=== PATIENT | male | born 1955 | race Caucasian/White ===

== ENCOUNTER → 2023-08-25 10:12 | Outpatient (REF) | payer MEDICARE, BC, SELFPAY | LOC: HWRAD 10:12 | PROVIDERS: ATTENDING PHYSICIAN Specialist; FAMILY PHYSICIAN Family Medicine | DX: N28.89 Other specified disorders of kidney and ureter (principal); N28.1 Cyst of kidney, acquired | CPT/HCPCS: 74170; Q9967 ==

== ENCOUNTER → 2024-08-23 08:27 | Outpatient (REF) | payer MEDICARE, BC, SELFPAY | LOC: MRI 3T 08:27 | PROVIDERS: ATTENDING PHYSICIAN Specialist; FAMILY PHYSICIAN Family Medicine | DX: N28.89 Other specified disorders of kidney and ureter (principal); N28.1 Cyst of kidney, acquired | CPT/HCPCS: 74183; A9575 ==

== ENCOUNTER → 2024-09-27 15:45 | Outpatient (REF) | payer MEDICARE, BC, SELFPAY | LOC: HWRAD 15:45 | PROVIDERS: ATTENDING PHYSICIAN Urology; FAMILY PHYSICIAN Family Medicine | DX: N28.89 Other specified disorders of kidney and ureter (principal) | CPT/HCPCS: 71046 ==

== ENCOUNTER 2024-10-14 20:00 | Inpatient (IN) | payer MEDICARE, BC, SELFPAY ==
[2024-10-14] VITALS (12 sets, daily range): BP systolic 113–147; BP diastolic 52–126; BMI 38.5
[2024-10-14 10:55] LABS: Glucose - Point of Care 116 mg/dl (70-99)
[2024-10-14] MEDS: NORMOSOL-R/PLASMALYTE-A 1000 IV (11:08)
[2024-10-14 17:57] LABS: Glucose - Point of Care 193 mg/dl (70-99)
[2024-10-14 18:18] LABS: Hematocrit 30.2 % (39.0-52.0); Hemoglobin 10.4 g/dL (13.0-18.0)
[2024-10-14] MEDS: DILAUDID 0.25 MG IV ×2 (18:27→19:21)
[2024-10-14] MEDS: NOVOLOG vial 1 UNITS SC (18:32)
[2024-10-14] MEDS: LR 1000 IV (20:19)
[2024-10-14] MEDS: PROTONIX 40 MG PO (20:30)
[2024-10-14] MEDS: SENOKOT 17.2 MG PO (20:30)
[2024-10-14] MEDS: PEPCID 20 MG PO (20:30)
[2024-10-14] MEDS: LIPITOR 40 MG PO (20:30)
--- NOTE | 2024-10-14 20:30 | PTCARENOTE ---
Addendum entered by Ritu Yeager RN 10/14/24 23:00:
Pt arrived to 2S from PACU. Lap left partial nephrectomy. AAOx3. VSS. IVF administered as ordered. Tolerating clear liquids. Bed in lowest position, call dawn within reach, safety maintained. Family at bedside.
Original Note:
Pt arrived to 2S from PACU.
[2024-10-14 21:10] LABS: Glucose - Point of Care 219 mg/dl (70-99)
[2024-10-14] MEDS: ELAVIL 50 MG PO (21:23)
[2024-10-14] MEDS: PERCOCET 5/325 1 TABLET PO (22:38)
[2024-10-15 03:35] VITALS: BP 136/57
[2024-10-15] MEDS: LR 1000 IV (03:41)
[2024-10-15 06:00] VITALS: BMI 39.5
[2024-10-15 07:07] LABS: Hematocrit 27.7 % (39.0-52.0); Hemoglobin 9.5 g/dL (13.0-18.0); Mean Corp Hgb Conc. 34.3 g/dL (33.0-37.0); Mean Corpuscular Hgb 31.3 pg (27.0-31.0); Mean Corpuscular Volume 91.1 fL (80.0-94.0); Platelet Count 199 10^3/uL (130-400); Red Blood Cell Count 3.04 10^6/uL (4.70-6.10); Red Cell Dist. Width 12.7 % (11.5-14.5); White Blood Cell Count 13.3 10^3/uL (4.8-10.8)
[2024-10-15 07:47] LABS: Blood Urea Nitrogen 18 mg/dl (9-20); Calcium 7.9 mg/dl (8.4-10.2); Carbon Dioxide 25 mmol/L (22-30); Chloride 108 mmol/L (98-107); Estimated Creatinine Clearance 104 ml/min; Glucose 169 mg/dl (70-99); Potassium 4.4 mmol/L (3.5-5.1); Sodium 136 mmol/L (135-145); eGFR > 60.00
[2024-10-15 08:05] VITALS: BP 133/58
[2024-10-15 08:12] LABS: Glucose - Point of Care 169 mg/dl (70-99)
--- NOTE | 2024-10-15 08:45 | W.PN.URO.CBU ---
Addendum entered and electronically signed by Solis Elaine MD 10/15/24 08:53:
Preop starting HGB 12.3
Original Note:
Today's Communication / Plan
-
- Trend hematuria - flushed for some clots this morning
- Trend HGB and vitals - some post op bleeding. No signs of hypovolemia
- Remove martini when urine clearing
Assessment / Plan
-
69M with large L lower pole renal mass consistent with renal cell carcinoma
s/p robotic L partial nephrectomy 10/14
- Trend hematuria - flushed for some clots this morning
- Trend HGB and vitals - some post op bleeding. No signs of hypovolemia
- Remove martini when urine clearing
- Diabetic diet
- IS
- Ambulate and chair today to stay mobile
- SCD DVT PPx
Likely discharge tomorrow if stable
Diagnosis
-
Date of Service: October 15, 2024
-
Patient Diagnosis:
Left renal mass
Post op anemia - blood loss and dilutional
EKATERINA
CAD
DM
Post Op s/p L partial nephrectomy 10/14
Subjective
-
Pain controlled
Some clots in martini overnight
Tolerating clears
Objective
-
Vital Signs
Temp Pulse Resp BP Pulse Ox
98.8 F 86 18 133/58 91
10/15/24 08:05 10/15/24 08:05 10/15/24 08:05 10/15/24 08:05 10/15/24 08:05
Intake and Output
10/14/24 10/15/24 10/16/24
06:59 06:59 06:59
Intake Total 960 / 960
Output Total 1550 / 1550
Balance -590 / -590
Intake:
Oral fluids 960 / 960
Output:
Urine, Martini 155 / 1550
Laboratory Results
10/15/24 06:58
10/15/24 06:58
Physical Exam
-
General - well developed, well nourished, no acute distress
Chest - clear unlabored
Abdomen - soft, non-tender
Martini in place, red urine with clots
Skin - warm & dry with no rash
Neuro - AOx3
Extremities -no edema
Incision - clean, dry
[2024-10-15] MEDS: PERCOCET 5/325 1 TABLET PO ×2 (08:49→20:44)
[2024-10-15] MEDS: PROTONIX 40 MG PO ×2 (08:49→19:42)
[2024-10-15] MEDS: NOVOLOG FLEXPEN-LOW RESISTANCE 1 UNITS SC (08:49)
[2024-10-15] MEDS: LOW STRENGTH ASPIRIN 81 MG PO (08:50)
[2024-10-15] MEDS: ZESTRIL 10 MG PO (08:50)
[2024-10-15] MEDS: FEOSOL 325 MG PO (08:50)
[2024-10-15] MEDS: SENOKOT 17.2 MG PO ×2 (08:50→19:42)
--- NOTE | 2024-10-15 09:02 | CM ---
CM met with patient in room. Patient confirmed demographics. Patient lives independently with . Patient does not have a history of VN, SNF. Patient has a CPAP. Patient does not know DME company. Patient is active with his PCP. Patient will
use [facility] for medication services. Patient's will be available for assistance.
PLAN: Home no needs.
[2024-10-15 09:46] LABS: Glycohemoglobin (HgbA1c) 5.7 % (4.0-5.6)
[2024-10-15 11:32] VITALS: BP 120/60
[2024-10-15] MEDS: NOVOLOG FLEXPEN-LOW RESISTANCE SC (13:21)
[2024-10-15 15:10] VITALS: BP 124/57
[2024-10-15] MEDS: TYLENOL 650 MG PO (15:49)
[2024-10-15 16:57] LABS: Glucose - Point of Care 209 mg/dl (70-99)
[2024-10-15] MEDS: NOVOLOG FLEXPEN-LOW RESISTANCE 2 UNITS SC (17:11)
[2024-10-15] MEDS: LIPITOR 40 MG PO (17:12)
[2024-10-15] MEDS: PEPCID 20 MG PO (17:12)
[2024-10-15 19:10] VITALS: BP 134/59
[2024-10-15] MEDS: ELAVIL 50 MG PO (21:18)
[2024-10-15 21:53] LABS: Glucose - Point of Care 184 mg/dl (70-99)
[2024-10-15 23:15] VITALS: BP 143/58
[2024-10-16 06:00] VITALS: BMI 39.7
[2024-10-16 07:05] VITALS: BP 114/62
[2024-10-16 07:16] LABS: Hematocrit 28.7 % (39.0-52.0); Hemoglobin 9.7 g/dL (13.0-18.0); Mean Corp Hgb Conc. 33.8 g/dL (33.0-37.0); Mean Corpuscular Hgb 31.7 pg (27.0-31.0); Mean Corpuscular Volume 93.8 fL (80.0-94.0); Mean Platelet Volume 9.2 fL (7.4-10.4); Platelet Count 214 10^3/uL (130-400); Red Blood Cell Count 3.06 10^6/uL (4.70-6.10); Red Cell Dist. Width 13.2 % (11.5-14.5); White Blood Cell Count 11.7 10^3/uL (4.8-10.8)
[2024-10-16 07:34] LABS: Glucose - Point of Care 189 mg/dl (70-99)
[2024-10-16 07:45] LABS: Blood Urea Nitrogen 17 mg/dl (9-20); Calcium 8.3 mg/dl (8.4-10.2); Carbon Dioxide 27 mmol/L (22-30); Chloride 104 mmol/L (98-107); Estimated Creatinine Clearance 85 ml/min; Glucose 181 mg/dl (70-99); Potassium 4.1 mmol/L (3.5-5.1); Sodium 137 mmol/L (135-145); eGFR > 60.00
[2024-10-16] MEDS: NOVOLOG FLEXPEN-LOW RESISTANCE 1 UNITS SC ×2 (08:01→13:17)
[2024-10-16] MEDS: FEOSOL 325 MG PO (08:02)
[2024-10-16] MEDS: SENOKOT 17.2 MG PO (08:02)
[2024-10-16] MEDS: PROTONIX 40 MG PO (08:02)
[2024-10-16] MEDS: ZESTRIL 10 MG PO (08:03)
[2024-10-16] MEDS: LOW STRENGTH ASPIRIN 81 MG PO (08:03)
[2024-10-16] MEDS: TYLENOL 650 MG PO (08:06)
[2024-10-16 11:39] LABS: Glucose - Point of Care 184 mg/dl (70-99)
--- NOTE | 2024-10-16 11:56 | W.PN.URO.CBU ---
Today's Communication / Plan
-
discharge
Assessment / Plan
-
69M with large L lower pole renal mass consistent with renal cell carcinoma
s/p robotic L partial nephrectomy 10/14
stable
Diagnosis
-
Date of Service: October 16, 2024
-
Patient Diagnosis:
Left renal mass
Post op anemia - blood loss and dilutional
EKATERINA
CAD
DM
Post Op s/p L partial nephrectomy 10/14
Subjective
-
diminishing pain
+ appetite
feels well enough to go home
Objective
-
Vital Signs
Temp Pulse Resp BP Pulse Ox
98.3 F 102 16 114/62 95
10/16/24 07:05 10/16/24 07:05 10/16/24 07:05 10/16/24 07:05 10/16/24 07:05
Intake and Output
10/15/24 10/16/24 10/17/24
06:59 06:59 06:59
Intake Total 3045 / 3045
Output Total 2680 / 2680 400 / 400
Balance 365 / 365 -400 / -400
Intake:
Oral fluids 2670 / 2670
IV fluids (Total) 375 / 375
Output:
Urine, Franco 2400 / 2400
Urine, Voided 280 / 280 400 / 400
Other:
Number of approximated MODERATE 2
amounts of urine
Laboratory Results
10/16/24 06:36
10/16/24 06:36
Physical Exam
-
General - well developed, well nourished, no acute distress
Abdomen - glued surgical sites are healthy, intact; expected degree of bruising
--- NOTE | 2024-10-16 12:46 | CM ---
Patient has been medically cleared for discharge to home with no additional skilled services. Patient declined HH RN. Son will transport home.
[2024-10-16 13:15] VITALS: BP 118/50
--- NOTE | 2024-10-25 12:54 | W.DS.TRANS ---
DC Summary - Exchange Trouble Shooter
-
Discharge Instructions:
Discharge Diagnosis/Procedures Left kidney mass
Robotic left partial nephrectomy
Diet Diabetic, Carb Controlled
Activity No strenuous activity
Additional Activity avoid lifting, straining, strenuous activity for
4 weeks post surgery
Driving Restrictions As prior to admission
Bathing Restrictions OK to Shower
Wound Care gently rinse incisions in the shower - don't
scrub or pick off glue
Instructions:
Stand-Alone Forms:
Changes to Home Medications: No
Discharge Medications:
DC Medications w/original date entered in [facility]
multivitamin with folic acid 400 mcg tablet (Tab-A-Elizabeth) 1 tab PO DAILY Supplement 01/21/17
aspirin 81 mg chewable tablet 81 mg PO DAILY 01/23/17
lisinopril 10 mg tablet 10 mg PO DAILY #30 tabs 01/23/17
metformin 500 mg tablet,extended release 24 hr 1,000 mg (2 x 500 mg) PO QPM #30 tabs 01/23/17
amitriptyline 10 mg tablet 50 mg PO HS Neurological Condition 09/05/22
famotidine 20 mg tablet 20 mg PO QPM Gastrointestinal Issue 10/12/24
pantoprazole 40 mg tablet,delayed release 40 mg PO BID Gastrointestinal Issue 10/12/24
semaglutide 0.25 mg or 0.5 mg (2 mg/3 mL) subcutaneous pen injector (Ozempic) 0.5 mg SC BAXTER Diabetes 10/12/24
ferrous sulfate 325 mg (65 mg iron) tablet 325 mg PO BID Supplement 10/14/24
acetaminophen 500 mg tablet (Tylenol Extra Strength) 1,000 mg PO Q6HPRN PRN MILD PAIN 10/19/24
atorvastatin 40 mg tablet (Lipitor) 40 mg PO QPM High Cholesterol 10/19/24
ibuprofen 200 mg tablet (Advil) 400 mg PO DAILYPRN PRN MILD PAIN 10/19/24
metformin 500 mg tablet,extended release 24 hr 500 mg PO DAILY Diabetes 10/19/24
oxycodone-acetaminophen 5 mg-325 mg tablet 1 tab PO Q6HPRN PRN moderate pain 10/19/24
polyethylene glycol 3350 17 gram oral powder packet (Miralax) 17 g PO DAILYPRN PRN CONSTIAPTION 10/19/24
Home Medication Changes
Pending Results: Yes (pathology)
== END 2024-10-16 13:52 | disposition home or self-care (01) | DRG 658 ==
LOC: 2 SOUTH 20:00
PROVIDERS: ADMITTING PHYSICIAN Urology
PROC: 0TB14ZZ Excision of Left Kidney, Percutaneous Endoscopic Approach (ICD-10-PCS; 2024-10-14)
DX: C64.2 Malignant neoplasm of left kidney, except renal pelvis (principal); Z88.0 Allergy status to penicillin
CPT/HCPCS: 88307; 80048; 82962; 83036; 85014; 85018; 85027; 86850; 86900; 86901; 88341; 88342

== ENCOUNTER 2024-10-19 15:06 | Inpatient (IN) | payer MEDICARE, BC, SELFPAY ==
[2024-10-19] VITALS (17 sets, daily range): BP systolic 121–165; BP diastolic 55–77; BMI 39.7
--- NOTE | 2024-10-19 06:21 | ED.GENMED ---
History of Present Illness
General
Chief Complaint: Male Genito-Urinary Symptoms
Source: patient and family
Exam Limitations: none
Time Seen by Provider: 10/19/24 06:06
Nursing documentation reviewed up to this point in time: agreed with
History of Present Illness
History of Present Illness:
69-year-old male past medical history of renal cell carcinoma status post partial nephrectomy 5 days ago presenting to the emergency department today with concerns of hematuria starting this morning upon awakening. Very mild left-sided flank pain
as well. Otherwise has been recovering well at home. Denies any fevers nausea vomiting any difficulty with urination. Not on blood thinners.
Past History
Past History
ED Past Medical History: NIDDM
ED Past Surgical History: Appendectomy and Cholecystectomy
Social History
Tobacco: Non-smoker
Alcohol: Occasional
Drug: None
Personal:
Living: with family
Employment: Employed
Review of Systems
Review of Systems
Allergies reviewed?: Yes
All Other Systems: ROS reviewed and negative except as documented in HPI and ROS
Phy Exam
Physical Exam
Physical Exam:
GENERAL: Alert , in no apparent distress
EYE: pupils equal and reactive
NECK: Supple, no significant adenopathy.
ENT: o/p clr, mmm.
CARDIAC: Regular rate and rhythm .
LUNGS: Clear breath sounds bilaterally, no acute respiratory distress, no wheezes/rales/rhonchi
ABDOMEN: Soft, without focal tenderness, no r/g, no cvat
NEUROLOGICAL: Alert and oriented, no focal neuro deficits
SKIN: Warm and dry, skin intact.
MUSCULOSKELETAL: No edema, well perfused.
PSYCH: Normal and appropriate interaction.
Course
Orders/Labs/Results
Orders:
Orders
10/19/24 06:29
Complete Blood Count/With Diff Urgent
Comprehensive Metabolic Panel Urgent
Urinalysis Reflex To Culture Urgent
Date Specimen was Collected: 10/19/24
Time Specimen was Collected: 06:14
Urine Microscopic Reflex Cult Urgent
Urine Culture Urgent
LEONILA Source: U
Specimen Description:
Date Specimen was Collected: 10/19/24
Time Specimen was Collected: 06:14
10/19/24 06:59
CT Abd/Pel (IV only)-DH only Urgent
Comment:
Reason For Exam: hematuria left flank pain, recent partial neph L
10/19/24 08:47
Bladder Scan- Treatment ONCE
Comment: PVR please
10/19/24 09:26
Morphine Sulfate 4 mg IV NOW STA
10/19/24 09:30
Lidocaine 2% [Lidocaine Uro-Jet 2%] 1 syringe .ROUTE .[facility]
10/19/24 10:03
Franco Placement- Treatment ONCE
Reason for insertion: Outlet obstruction
10/19/24 11:33
Acetaminophen [Tylenol] 1,000 mg PO NOW STA
Abnormal Lab Results
10/19/24
06:29
RBC 2.75 L 10^6/uL
(4.70-6.10)
Hgb 8.6 L g/dL
(13.0-18.0)
Hct 26.2 L %
(39.0-52.0)
MCV 95.3 H fL
(80.0-94.0)
MCH 31.3 H pg
(27.0-31.0)
MCHC 32.8 L g/dL
(33.0-37.0)
Absolute Neuts (auto) 6.9 H 10^3/uL
(1.4-6.5)
Absolute Monos (auto) 0.7 H 10^3/uL
(0.1-0.6)
Neutrophils % 76.6 H %
(42.2-75.2)
Lymphocytes % 15.0 L %
(20.5-51.1)
Chloride 109 H mmol/L
(98-107)
Glucose 184 H mg/dl
(70-99)
Total Protein 6.1 L g/dl
(6.3-8.2)
Ur Occult Blood Reflex 4+ A
(Negative)
Leukocyte Esterase Rfl 1+ A
(Negative)
Urine RBC >100 A /HPF
(0-2)
Urine Glucose 1+ A
(Negative)
Urine Albumin (Reflex) 4+ A
(Neg - Trace)
10/19/24 06:29
10/19/24 06:29
Vital Signs
Initial and Last Documented VS:
Initial Vital Signs
Temp Pulse Resp BP Pulse Ox
98 F 92 22 148/66 96
10/19/24 05:59 10/19/24 05:59 10/19/24 05:59 10/19/24 05:59 10/19/24 05:59
Last Documented Vital Signs
Temp Pulse Resp BP Pulse Ox
98 F 90 25 156/65 95
10/19/24 05:59 10/19/24 11:15 10/19/24 11:15 10/19/24 11:07 10/19/24 07:45
MDM/Problems Addressed
MDM/Problems Addressed:
69-year-old male presenting to the emergency department today with concerns of hematuria this morning. Had a partial nephrectomy 5 days ago. Otherwise was recovering well since. Vital signs normal on arrival. No significant reproducible pain but
is complaining of some degree of left-sided flank pain at this point. No belly pain otherwise. 47-year-old CT scan showing hematoma to the kidney as well as clot in the bladder. Postvoid residual showing almost 200 cc. This was discussed with
urology recommended bladder irrigation. The bladder was irrigated with improvement and 55 cc with postvoid residual afterward. Due to his drop in hemoglobin and large hematoma plan to admit for monitoring and reassessment.
*Critical Care Note
Total Time (30-74mins, 75-104mins- exclusive of procedures): Not Applicable
ED Attending Note
-
Portions of this chart may have been created with voice recognition software.� Occasional wrong word or��sound alike� substitutions may have occurred due to the inherent limitations of voice recognition software.
Discharge Plan
Departure
Patient Disposition: Admit
Date of Disposition: 10/19/24
Time of Disposition: 11:41
Admit to: Med/Surg
Admit to doctor: Wm
Presentation/result/management discussed w/ accepting MD/DO: Hospitalist
Patient with high blood pressure during this ER visit?: No
Condition: Good
Covid-19: Not Applicable
Discharge Problem:
Hematuria, Hematoma of kidney
Prescriptions:
No Action
multivitamin with folic acid [Tab-A-Elizabeth] 1 TABLET tablet
1 tab PO DAILY
lisinopril 10 MG tablet
10 mg PO DAILY Qty: 30 0RF
aspirin 81 MG tablet,chewable
81 mg PO DAILY 0RF
metformin 500 MG tablet extended release 24 hr
1,000 mg PO QPM Qty: 30 0RF
metformin 500 mg Tablet
500 mg PO DAILY
amitriptyline 10 mg Tablet
50 mg PO DAILY
Rx Instructions:
Taken to control tactile pain on chest, not for depression
atorvastatin 80 MG tablet
40 mg PO QPM
acetaminophen [Tylenol] 325 mg Tablet
650 mg PO Q4H PRN (Reason: pain)
famotidine 20 mg Tablet
20 mg PO QPM
pantoprazole 40 mg Tablet,Delayed Release (Dr/Ec)
40 mg PO BID
Ozempic 0.25 mg or 0.5 mg (2 mg/3 mL) Pen Injector
0.5 mg SC QWEEK
Rx Instructions:
Takes on Friday
ferrous sulfate 325 mg (65 mg iron) Tablet
325 mg PO BID
oxycodone-acetaminophen 5-325 mg Tablet
1 tab PO Q4HPRN PRN (Reason: moderate pain) Qty: 10 0RF
Referrals:
Tanner Matos DO [Family Provider] -
Interventions
Interventions:
*Risk Screen - Suicide Last Done: 10/19/24 05:59
*Neglect/Abuse Screening Last Done: 10/19/24 05:59
*ED- Fall Risk Assessment Last Done: 10/19/24 06:06
*ED COVID-19 Vaccine History Last Done: 10/19/24 06:06
ED-Male Genitourinary Assessment Last Done: 10/19/24 07:01
ED-Skin Assessment Last Done: 10/19/24 06:06
Discharge Date and Time
Print Language: MALIAN
[2024-10-19 06:43] LABS: % Basophils 0.2 % (0-2); % Eosinophils 0.2 % (0-6); % Immature Granulocytes 0.3 % (0-0.5); % Monocytes 7.7 % (1.7-9.3); % Neutrophils 76.6 % (42.2-75.2); Absolute Lymphocytes 1.4 10^3/uL (1.2-3.4); Absolute Monocytes 0.7 10^3/uL (0.1-0.6); Absolute Neutrophils 6.9 10^3/uL (1.4-6.5); Hematocrit 26.2 % (39.0-52.0); Hemoglobin 8.6 g/dL (13.0-18.0); Mean Corp Hgb Conc. 32.8 g/dL (33.0-37.0); Mean Corpuscular Hgb 31.3 pg (27.0-31.0); Mean Corpuscular Volume 95.3 fL (80.0-94.0); Mean Platelet Volume 8.9 fL (7.4-10.4); Nucleated Red Blood Cells % 0 % (-); Platelet Count 220 10^3/uL (130-400); Red Blood Cell Count 2.75 10^6/uL (4.70-6.10); Red Cell Dist. Width 13.2 % (11.5-14.5); White Blood Cell Count 9.1 10^3/uL (4.8-10.8)
[2024-10-19 06:54] LABS: ALT (SGPT) 27 U/L (0-50); AST (SGOT) 28 U/L (17-59); Albumin 3.8 g/dl (3.5-5.0); Alkaline Phosphatase 91 U/L (38-126); Blood Urea Nitrogen 14 mg/dl (9-20); Calcium 8.4 mg/dl (8.4-10.2); Carbon Dioxide 25 mmol/L (22-30); Chloride 109 mmol/L (98-107); Estimated Creatinine Clearance 94 ml/min; Glucose 184 mg/dl (70-99); Potassium 4.3 mmol/L (3.5-5.1); Sodium 138 mmol/L (135-145); Total Bilirubin 0.7 mg/dl (0.2-1.3); Total Protein 6.1 g/dl (6.3-8.2); eGFR > 60.00
[2024-10-19 07:20] LABS: Urine Albumin 4+ (Neg - Trace); Urine Bilirubin Negative (Negative); Urine Character Cloudy (Clear); Urine Color Red; Urine Glucose 1+ (Negative); Urine Ketone Negative (Negative); Urine Leukocyte 1+ (Negative); Urine Nitrite Negative (Negative); Urine Occult Blood 4+ (Negative); Urine Urobilinogen Negative (Neg - 1+)
[2024-10-19 08:27] LABS: Urine Red Blood Cell >100 /HPF (0-2); Urine Squamous Cell 0-2 /LPF (Few)
[2024-10-19] MEDS: MORPHINE SULFATE 4 MG IV (09:34)
--- NOTE | 2024-10-19 11:45 | HPS.HSE ---
Addendum entered and electronically signed by Kamryn Merritt MD 10/19/24 17:35:
noted intermittent hyperglycemia during last hospitalization
FS monitoring and low dose sliding scale ordered for now.
Original Note:
Family Physician
-
Family Physician: Tanner Matos
Chief Complaint
-
Hematuria
History of Present Illness
69M Obesity prediabetes HTN HLD GERD history of renal cell carcinoma status post partial nephrectomy 5 days ago presenting with concerns of hematuria starting morning upon awakening. Very mild left-sided flank pain as well. Otherwise reports
recovering well at home. Denies any fevers nausea vomiting any difficulty with urination. Not on blood thinners. VSS labs notable for drop in hgb from 9.7 last hospitalization to 8.6 on ED eval. Denies fever chills nausea vomiting significant abd
pain. Pt otherwise reports feeling well. CT noted post left partial nephrectomy with associate collection 8.4 cm diameter suggestive hematoma.
Medical History
Past Medical History
Past Medical History: Reports Other
Past Surgical History: Reports Other (as above)
Social History
Tobacco: Non-smoker
Drug: None
Personal:
Living: With Family
Family History
Family History: Not pertinent (reviewed)
Allergies / Home Medications
Allergies reflects when Allergies were last updated in [facility].
Home Medications with original date entered in [facility]
Allergy/Medication List:
Allergies
Allergy/AdvReac Type Severity Reaction Status Date / Time
Cephalosporins Allergy Unknown; Verified 10/19/24 06:01
reflexively
added by
[employer]
in 2007
penicillin G Allergy Swelling Verified 10/19/24 06:01
Penicillins Allergy Swelling Verified 10/19/24 06:01
Home Medications
multivitamin with folic acid 400 mcg tablet (Tab-A-Elizabeth) 1 tab PO DAILY 01/21/17
aspirin 81 mg chewable tablet 81 mg PO DAILY 01/23/17
lisinopril 10 mg tablet 10 mg PO DAILY #30 tabs 01/23/17
metformin 500 mg tablet,extended release 24 hr 1,000 mg (2 x 500 mg) PO QPM #30 tabs 01/23/17
amitriptyline 10 mg tablet 50 mg PO HS 09/05/22
famotidine 20 mg tablet 20 mg PO QPM 10/12/24
pantoprazole 40 mg tablet,delayed release 40 mg PO BID 10/12/24
semaglutide 0.25 mg or 0.5 mg (2 mg/3 mL) subcutaneous pen injector (Ozempic) 0.5 mg SC BAXTER 10/12/24
ferrous sulfate 325 mg (65 mg iron) tablet 325 mg PO BID 10/14/24
acetaminophen 500 mg tablet (Tylenol Extra Strength) 1,000 mg PO Q6HPRN PRN MILD PAIN 10/19/24
atorvastatin 40 mg tablet (Lipitor) 40 mg PO QPM 10/19/24
ibuprofen 200 mg tablet (Advil) 400 mg PO DAILYPRN PRN MILD PAIN 10/19/24
metformin 500 mg tablet,extended release 24 hr 500 mg PO DAILY 10/19/24
oxycodone-acetaminophen 5 mg-325 mg tablet 1 tab PO Q6HPRN PRN moderate pain 10/19/24
polyethylene glycol 3350 17 gram oral powder packet (Miralax) 17 g PO DAILYPRN PRN CONSTIAPTION 10/19/24
Review of Systems
-
A 12 point ROS was completed and negative except as noted: Yes
Constitutional: Reports Other (As below)
Physical Exam
Vital Signs
Vital Signs
Temp Pulse Resp BP Pulse Ox
98 F 90 25 156/65 95
10/19/24 05:59 10/19/24 11:15 10/19/24 11:15 10/19/24 11:07 10/19/24 07:45
Physical Exam
General: Other (As below)
Laboratory Results
-
10/19/24 06:29
10/19/24 06:29
Laboratory Results
Total Bilirubin 0.7 mg/dl (0.2-1.3) 10/19/24 06:29
AST 28 U/L (17-59) 10/19/24 06:29
ALT 27 U/L (0-50) 10/19/24 06:29
Alkaline Phosphatase 91 U/L (38-126) 10/19/24 06:29
Impression/Plan
-
ROS
General: Denies fever chills night sweats unexpected weight loss
Neuro: Denies seizure shaking loss of consciousness dizziness vertigo
Psych: denies depression hallucinations confusion manic episodes
Endocrine: Denies polyuria polydipsia polyphagia heat/cold intolerance
HEENT: Denies blindness visual disturbances epistaxis
Pulmonary: denies coughing hemoptysis sneezing sob dyspnea on exertion
Cardiovascular: denies chest pain palpitations leg swelling
Hematology: denies signs symptoms of anemia easy bruising/bleeding
Gastrointestinal: denies nausea vomiting diarrhea constipation hematemesis hematochezia melena
Genito-Urinary: denies retention incontinence dysuria
Musculoskeletal: denies joint pain weakness
Dermatology: denies rash laceration bruising
Physical Exam
General: Some pallor noted. No cyanosis or jaundice. Obese
HEENT: Throat clear. PERRLA Normocephalic atraumatic
NECK: Supple. No JVD Carotid Bruits
RESPIRATORY: Lungs clear to auscultation. No crackles wheezes stridor
CVS: S1, S2 normal. RRR. No murmur, rub or gallop.
ABDOMEN: Soft, mild left-sided tenderness healing laparoscopic surgical wound sites. No distension. BS+/normal.
EXTREMITIES: No peripheral cyanosis or edema.
WATER HAULER: AOx3 conversant coherent
IMPRESSION:
69M Obesity prediabetes HTN HLD GERD history of renal cell carcinoma status post partial nephrectomy 5 days ago presenting with concerns of hematuria starting morning upon awakening. Very mild left-sided flank pain as well. Otherwise reports
recovering well at home. Denies any fevers nausea vomiting any difficulty with urination. Not on blood thinners. VSS labs notable for drop in hgb from 9.7 last hospitalization to 8.6 on ED eval. Denies fever chills nausea vomiting significant abd
pain. Pt otherwise reports feeling well. CT noted post left partial nephrectomy with associate collection 8.4 cm diameter suggestive hematoma.
PLAN:
#Acute blood loss anemia
#Renal cell carcinoma s/p recent partial Nephrectomy
Tele observation
monitor H&H Q6H
Type and screen
transfusion prn <8 Hgb given concern active bleeding
Urology eval
pain control percocet prn
hold NSAIDs except for baby asa
#HTN
cont home lisinopril with holding parameters
#HLD
cont home statin
#obesity
#prediabetes
Updated A1c 5.7 prediabetes
cont home metformin for weight loss
no need for routine fingersticks at this time
DVT ppx SCD
Full Code
discussed with patient, patient's Xiomara, and urology
I spent a total of 76 minutes with the patient or on the floor. More than 50% of this time involved counseling and coordination of care.
[2024-10-19] MEDS: TYLENOL 1000 MG PO ×2 (11:48→17:31)
--- NOTE | 2024-10-19 13:30 | EDRN ---
First void after the catheter treatment earlier
[2024-10-19 13:42] LABS: Hematocrit 23.7 % (39.0-52.0); Hemoglobin 7.9 g/dL (13.0-18.0)
[2024-10-19 14:48] LABS: Iron 40 ug/dl (49-181)
[2024-10-19 14:57] LABS: Percent Saturation 11 % (20-50); Total Iron Binding Capacity 343 ug/dl (261-462)
[2024-10-19 15:15] LABS: Folate 16.7 ng/ml (2.76-20); Vitamin B12 688 pg/ml (239-931)
--- NOTE | 2024-10-19 15:23 | CONS.URO ---
Consultation
-
Date/Time Consultation Performed: 10/19/24 at 1200
Performing Provider: Peffer
Reason for Consultation: Hematuria
Medical History
History of Present Illness
69M with large L lower pole renal mass
s/p robotic L partial nephrectomy on 10/14
Discharged on 10/16 after uncomplicated post op stay
Woke up this AM with L flank pain and sudden onset gross hematuria and difficulty voiding. Urine had previously been clear
Came to the ER and found to be stable
HGB decreased 1pt from 10/[address] showed retroperitoneal hematoma as well as hematoma in the bladder
No active extravasation/bleeding seen during arterial phase of CT
Bladder was irrigated with a martini in the ER with some clots removed
He has since voided well with low PVR
Past Medical History
Past Medical History: HTN and NIDDM
Past Surgical History: Urological (L partial nephrectomy)
Social History
Tobacco: Non-smoker
Alcohol: None
Drug: None
Personal:
Living: With Family
Family History
Family History: Reviewed & Not Pertinent
Allergies/Home Medications
Allergies
Allergy/AdvReac Type Severity Reaction Status Date / Time
Cephalosporins Allergy Unknown; Verified 10/19/24 06:01
reflexively
added by
[employer]
in 2007
penicillin G Allergy Swelling Verified 10/19/24 06:01
Penicillins Allergy Swelling Verified 10/19/24 06:01
Home Medications
�Medication �Instructions �Recorded �Confirmed �Type
multivitamin with folic acid 400 1 tab PO DAILY 01/21/17 10/19/24 History
mcg tablet (Tab-A-Elizabeth)
aspirin 81 mg chewable tablet 81 mg PO DAILY 01/23/17 10/19/24 Rx
lisinopril 10 mg tablet 10 mg PO DAILY #30 tabs 01/23/17 10/19/24 Rx
metformin 500 mg tablet,extended 1,000 mg (2 x 500 mg) PO QPM #30 01/23/17 10/19/24 Rx
release 24 hr tabs
amitriptyline 10 mg tablet 50 mg PO HS 09/05/22 10/19/24 History
famotidine 20 mg tablet 20 mg PO QPM 10/12/24 10/19/24 History
pantoprazole 40 mg tablet,delayed 40 mg PO BID 10/12/24 10/19/24 History
release
semaglutide 0.25 mg or 0.5 mg (2 0.5 mg SC BAXTER 10/12/24 10/19/24 History
mg/3 mL) subcutaneous pen injector
(Ozempic)
ferrous sulfate 325 mg (65 mg 325 mg PO BID 10/14/24 10/19/24 History
iron) tablet
acetaminophen 500 mg tablet 1,000 mg PO Q6HPRN PRN MILD PAIN 10/19/24 10/19/24 History
(Tylenol Extra Strength)
atorvastatin 40 mg tablet (Lipitor) 40 mg PO QPM 10/19/24 10/19/24 History
ibuprofen 200 mg tablet (Advil) 400 mg PO DAILYPRN PRN MILD PAIN 10/19/24 10/19/24 History
metformin 500 mg tablet,extended 500 mg PO DAILY 10/19/24 10/19/24 History
release 24 hr
oxycodone-acetaminophen 5 mg-325 1 tab PO Q6HPRN PRN moderate pain 10/19/24 10/19/24 History
mg tablet
polyethylene glycol 3350 17 gram 17 g PO DAILYPRN PRN CONSTIAPTION 10/19/24 10/19/24 History
oral powder packet (Miralax)
Physical Exam
Vital Signs
Vital Signs
Temp Pulse Resp BP Pulse Ox
98.6 F 95 18 148/74 96
10/19/24 14:45 10/19/24 14:45 10/19/24 14:45 10/19/24 14:45 10/19/24 14:45
Lab / Testing Results
Laboratory Results
10/19/24 18:00
10/19/24 06:29
Physical Exam
General: Well Developed, Well Nourished and No Apparent Distress
Respiratory: Clear and Non Labored Respirations
GI: Soft, Non Tender and Non Distended
Genito-urinary: No Costovertebral Tend
Neuro: AO x 3
Psych: Calm and Intact Judgement
Assessment / Plan
-
69M post op from robotic L partial nephrectomy 10/14
Readmitted for retroperitoneal hematoma and gross hematuria which represents bleeding at operative site, possible pseudoaneurysm formation
- Admit for observation and trend vitals
- serial HGB to measure bleeding
- Transfuse as needed for HGB <8 due possible active bleed
- IR for selective embolization if unstable or not responding to fluid/product resuscitation
- Observe voiding without martini at this time but may need catheter placement/CBI if bleeding resumes
- Limit activity for now until stable - bedrest or chair
[2024-10-19] MEDS: PEPCID 20 MG PO (17:31)
[2024-10-19] MEDS: LIPITOR 40 MG PO (17:31)
[2024-10-19] MEDS: GLUCOPHAGE XR EXTENDED RELEASE 1000 MG PO (17:32)
[2024-10-19 17:42] LABS: Glucose - Point of Care 173 mg/dl (70-99)
[2024-10-19] MEDS: PROTONIX 40 MG PO (19:55)
[2024-10-19] MEDS: ROXICODONE 5 MG PO (20:05)
[2024-10-19] MEDS: SENOKOT-S 1 TABLET PO (20:08)
[2024-10-19 21:26] LABS: Hematocrit 25.6 % (39.0-52.0); Hemoglobin 8.5 g/dL (13.0-18.0)
[2024-10-19] MEDS: ELAVIL 50 MG PO (21:26)
[2024-10-19 21:38] LABS: INR 1.06; PT 14.1 Sec (11.4-14.6)
[2024-10-19 21:54] LABS: Glucose - Point of Care 179 mg/dl (70-99)
[2024-10-20 03:00] VITALS: BP 149/62
--- NOTE | 2024-10-20 07:03 | W.PN.HOSP.TC ---
Today's Communication/Plan
-
monitor H&H, transfuse prn Hgb<8
pain control
hematuria monitoring/mgmt as per urology
Assessment / Plan
Assessment / Plan
Physical Exam
General: Some pallor noted. No cyanosis or jaundice. Obese
HEENT: Throat clear. PERRLA Normocephalic atraumatic
NECK: Supple. No JVD Carotid Bruits
RESPIRATORY: Lungs clear to auscultation. No crackles wheezes stridor
CVS: S1, S2 normal. RRR. No murmur, rub or gallop.
ABDOMEN: Soft, mild left-sided tenderness healing laparoscopic surgical wound sites. No distension. BS+/normal.
EXTREMITIES: No peripheral cyanosis or edema.
POSTBED STITCHER: AOx3 conversant coherent
IMPRESSION:
69M Obesity prediabetes HTN HLD GERD history of renal cell carcinoma status post partial nephrectomy 5 days ago presenting with concerns of hematuria starting morning upon awakening. Very mild left-sided flank pain as well. Otherwise reports
recovering well at home. Denies any fevers nausea vomiting any difficulty with urination. Not on blood thinners. VSS labs notable for drop in hgb from 9.7 last hospitalization to 8.6 on ED eval. Denies fever chills nausea vomiting significant abd
pain. Pt otherwise reports feeling well. CT noted post left partial nephrectomy with associate collection 8.4 cm diameter suggestive hematoma.
PLAN:
#Acute blood loss anemia
#Renal cell carcinoma s/p recent partial Nephrectomy
Tele
received 1PRBC with good response noted
monitor H&H
transfusion prn <8 Hgb given concern active bleeding
Urology eval appreciated
pain control percocet prn
hold NSAIDs except for baby asa
#HTN
cont home lisinopril with holding parameters
#HLD
cont home statin
#obesity
#prediabetes
Updated A1c 5.7 prediabetes
cont home metformin for weight loss
Low dose sliding scale for now given hyperglycemia noted recent last hospitalization
DVT ppx SCD
Full Code
I spent a total of 45 minutes with the patient or on the floor. More than 50% of this time involved counseling and coordination of care.
Anticipated Discharge: 24 - 48 hours
Subjective/Interval History
-
Date of Service: October 20, 2024
No acute distress. Reports feeling well. Hematuria persists. Pain controlled with current pain regimen
Objective Data
-
Labs:
Laboratory Results
10/19/24 10/20/24
21:19 06:52
WBC Pending
Hgb 8.5 L Pending
Hct 25.6 L Pending
Plt Count Pending
PT 14.1
INR 1.06
APTT 33.0
Sodium Pending
Potassium Pending
Chloride Pending
Carbon Dioxide Pending
BUN Pending
Creatinine Pending
Glucose Pending
Calcium Pending
Vital Signs:
Vital Signs
Temp Pulse Resp BP Pulse Ox
99.5 F 87 18 149/62 93
10/20/24 03:00 10/20/24 03:00 10/20/24 03:00 10/20/24 03:00 10/20/24 03:00
I&O
10/19/24 10/20/24 10/21/24
06:59 06:59 06:59
Intake Total 970 / 970
Output Total 530 / 530
Balance 440 / 440
[2024-10-20 07:13] VITALS: BP 136/72
[2024-10-20 07:21] LABS: Hematocrit 27.5 % (39.0-52.0); Hemoglobin 9.1 g/dL (13.0-18.0); Mean Corp Hgb Conc. 33.1 g/dL (33.0-37.0); Mean Corpuscular Hgb 30.5 pg (27.0-31.0); Mean Corpuscular Volume 92.3 fL (80.0-94.0); Mean Platelet Volume 8.8 fL (7.4-10.4); Platelet Count 248 10^3/uL (130-400); Red Blood Cell Count 2.98 10^6/uL (4.70-6.10); Red Cell Dist. Width 13.5 % (11.5-14.5); White Blood Cell Count 12.4 10^3/uL (4.8-10.8)
[2024-10-20 07:37] LABS: Glucose - Point of Care 208 mg/dl (70-99)
[2024-10-20 07:59] LABS: Blood Urea Nitrogen 13 mg/dl (9-20); Calcium 8.3 mg/dl (8.4-10.2); Carbon Dioxide 25 mmol/L (22-30); Chloride 107 mmol/L (98-107); Estimated Creatinine Clearance 94 ml/min; Glucose 165 mg/dl (70-99); Potassium 4.4 mmol/L (3.5-5.1); Sodium 138 mmol/L (135-145); eGFR > 60.00
[2024-10-20] MEDS: PROTONIX 40 MG PO ×2 (08:30→21:40)
[2024-10-20] MEDS: ZESTRIL 10 MG PO (08:30)
[2024-10-20] MEDS: THERAGRAN 1 TABLET PO (08:30)
[2024-10-20] MEDS: GLUCOPHAGE XR EXTENDED RELEASE 500 MG PO (08:30)
[2024-10-20] MEDS: LOW STRENGTH ASPIRIN 81 MG PO (08:30)
[2024-10-20] MEDS: NOVOLOG FLEXPEN-LOW RESISTANCE 2 UNITS SC ×3 (08:31→18:05)
--- NOTE | 2024-10-20 09:13 | W.PN.URO.CBU ---
Today's Communication / Plan
-
Trend HGB/vitals
Transfuse as needed
Trend voiding symptoms
Assessment / Plan
-
69M post op from robotic L partial nephrectomy 10/14
Readmitted for retroperitoneal hematoma and gross hematuria which represents bleeding at operative site, possible pseudoaneurysm formation
- Trend vitals and HGB
- Transfuse as needed for HGB <8 due to active bleeding
- Stable this AM post transfusion 1 unit
- IR for selective embolization if unstable or not responding to fluid/product resuscitation
- Observe voiding without martini at this time but may need catheter placement/CBI if bleeding with clot obstruction resumes
- Limit activity for now until stable - bedrest or chair
Diagnosis
-
Date of Service: October 20, 2024
-
Patient Diagnosis:
L renal mass
Retroperitoneal bleed
Hematuria
Post Op s/p L partial nephrectomy 10/14
Subjective
-
Voiding well this AM, had some episodes of passing clots yesterday
s/p transfusion yesterday
Objective
-
Vital Signs
Temp Pulse Resp BP Pulse Ox
99.0 F 92 18 136/72 94
10/20/24 07:13 10/20/24 07:13 10/20/24 07:13 10/20/24 07:13 10/20/24 07:13
Intake and Output
10/19/24 10/20/24 10/21/24
06:59 06:59 06:59
Intake Total 970 / 970
Output Total 530 / 530
Balance 440 / 440
Intake:
Oral fluids 720 / 720
Blood Product Amount Infused ( 250 / 250
mL)
Packed Rbc Leukoreduced Unit 250 / 250
[id number]
Output:
Urine, Voided 530 / 530
Other:
Number of approximated MODERATE 4
amounts of urine
Laboratory Results
10/20/24 06:52
10/20/24 06:52
Physical Exam
-
General - well developed, well nourished, no acute distress
Chest - clear bilaterally
Abdomen - soft, non-tender, positive bowel sounds, no CVAT, no incisional pain or distention
[2024-10-20] MEDS: FEOSOL 325 MG PO ×2 (10:50→21:40)
[2024-10-20 11:00] VITALS: BP 129/68
--- NOTE | 2024-10-20 11:17 | CM ---
Patient discharged 4 days ago S/P partial nephrectomy. Patient declined HH VN services at that time. Readmitted for hematuria. 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 Drives. Does have a
CPAP, no HH or in-home services. PCP is Dr. Tanner Matos and Pharmacy is [facility] on [facility] in [place]. Discharge POC: Patient again declines HH VN services. Home with NN.
[2024-10-20 11:59] LABS: Vitamin D, 25-OH*** 30.5 ng/mL (30-80)
[2024-10-20 12:14] LABS: Glucose - Point of Care 227 mg/dl (70-99)
[2024-10-20 15:45] VITALS: BP 132/81
--- NOTE | 2024-10-20 15:57 | DOWNTIME ---
There was a [employer] Client Settlement Clerk Downtime on 10/20/2024 from 1230 to 10/20/2024 at 1550. Downtime documentation of patient's care, including medication administrations, has been reconciled in the electronic record per guidelines. Refer to the
patient's paper chart under the miscellaneous tab to see printed paper medication records and downtime forms.
[2024-10-20] MEDS: GLUCOPHAGE XR EXTENDED RELEASE 1000 MG PO (17:47)
[2024-10-20] MEDS: PEPCID 20 MG PO (17:47)
[2024-10-20] MEDS: LIPITOR 40 MG PO (17:47)
[2024-10-20 18:06] LABS: Glucose - Point of Care 203 mg/dl (70-99)
[2024-10-20] MEDS: ROXICODONE 5 MG PO ×2 (18:08→21:58)
[2024-10-20 18:54] LABS: Urine Albumin 4+ (Neg - Trace); Urine Bilirubin Negative (Negative); Urine Character Cloudy (Clear); Urine Color Red; Urine Glucose Negative (Negative); Urine Ketone 1+ (Negative); Urine Leukocyte Negative (Negative); Urine Nitrite Negative (Negative); Urine Occult Blood 4+ (Negative); Urine Urobilinogen Negative (Neg - 1+)
[2024-10-20 19:00] LABS: Hematocrit 26.6 % (39.0-52.0)
[2024-10-20 19:14] LABS: Urine Red Blood Cell >100 /HPF (0-2); Urine Squamous Cell 0-2 /LPF (Few)
[2024-10-20 19:15] LABS: Urine Bacteria Few (Negative)
[2024-10-20 19:20] VITALS: BP 141/71
[2024-10-20] MEDS: ELAVIL 50 MG PO (21:39)
[2024-10-20 21:41] LABS: Glucose - Point of Care 182 mg/dl (70-99)
[2024-10-20 23:15] VITALS: BP 140/61
[2024-10-21] VITALS (15 sets, daily range): BP systolic 94–141; BP diastolic 45–87; BMI 38.8
[2024-10-21] MEDS: ROXICODONE 5 MG PO ×3 (02:07→18:09)
[2024-10-21] MEDS: TYLENOL 1000 MG PO (03:29)
--- NOTE | 2024-10-21 05:34 | W.PN.UPDATE ---
Update Note
Progress Note Update
Pt seen for lightheadedness/dizziness, tachycardic HR 120's, BP 121/43. Blood glucose 201. Temp 101.6 oral. EKG completed, HR 123.
RN stated that patient had approximately 850 mls of punch colored urine out this shift. Pt also reports dark colored stools.
Ordered: CBC, BMP, Lactic 3.5 (repeat lactic ordered, 1L fluid bolus given, IV fluids ordered), Blood cx- pending, COVID- pending, Flu A & B - pending, Type and screen, Troponin < 0.012. Hematest ordered, resulted negative. UA previously done,
negative for infection. Tylenol given previously at 3:29 am (reported that patient started w/rigors). Antibiotics pending blood cultures.
[2024-10-21 05:35] LABS: Glucose - Point of Care 201 mg/dl (70-99)
[2024-10-21 06:01] LABS: Hematocrit 24.2 % (39.0-52.0); Hemoglobin 8.4 g/dL (13.0-18.0); Mean Corp Hgb Conc. 34.7 g/dL (33.0-37.0); Mean Corpuscular Hgb 31.1 pg (27.0-31.0); Mean Corpuscular Volume 89.6 fL (80.0-94.0); Mean Platelet Volume 9.2 fL (7.4-10.4); Platelet Count 184 10^3/uL (130-400); Red Cell Dist. Width 13.4 % (11.5-14.5); White Blood Cell Count 3.3 10^3/uL (4.8-10.8)
[2024-10-21 06:07] LABS: Lactic Acid 3.5 mmol/L (0.7-2.0)
[2024-10-21 06:08] LABS: Blood Urea Nitrogen 19 mg/dl (9-20); Carbon Dioxide 21 mmol/L (22-30); Chloride 106 mmol/L (98-107); Estimated Creatinine Clearance 72 ml/min; Glucose 188 mg/dl (70-99); Potassium 3.8 mmol/L (3.5-5.1); Sodium 136 mmol/L (135-145); eGFR 59.84
[2024-10-21] MEDS: NSS 1000 IV ×3 (06:10→10:22)
[2024-10-21 06:20] LABS: Troponin I < 0.012 ng/ml
--- NOTE | 2024-10-21 06:40 | PTCARENOTE ---
Addendum entered by Ann Cristobal RN 10/21/24 06:46:
PO2 89%RA, placed on 4L o2 92%
Original Note:
529- pt wanting to sit up, states he needs to go to bathroom. pt sat up and attempted to stand but became, dizzy, lightheaded and states 'I do not feel well'. CLAIMS SPECIALIST notified, EKG, labs and blood cx sent. VS [id number]/62, Blood glucose 182,
stool heme test negative. Pt denies increase pain in abd, +hematuria throughout the night, neg clots. IVF NSS bolus infusing.
[2024-10-21 07:01] LABS: Glucose - Point of Care 182 mg/dl (70-99)
--- NOTE | 2024-10-21 07:13 | W.PN.HOSP.TC ---
Today's Communication/Plan
-
see a/p
Assessment / Plan
Assessment / Plan
Physical Exam
General: Some pallor noted. No cyanosis or jaundice. Obese
HEENT: Throat clear. PERRLA Normocephalic atraumatic
NECK: Supple. No JVD Carotid Bruits
RESPIRATORY: Lungs clear to auscultation. No crackles wheezes stridor
CVS: S1, S2 normal. RRR. No murmur, rub or gallop.
ABDOMEN: Soft, mild left-sided tenderness healing laparoscopic surgical wound sites. No distension. BS+/normal.
EXTREMITIES: No peripheral cyanosis or edema.
MAILROOM MESSENGER: AOx3 conversant coherent
IMPRESSION:
69M Obesity prediabetes HTN HLD GERD history of renal cell carcinoma status post partial nephrectomy 5 days ago presenting with concerns of hematuria starting morning upon awakening. Very mild left-sided flank pain as well. Otherwise reports
recovering well at home. Denies any fevers nausea vomiting any difficulty with urination. Not on blood thinners. VSS labs notable for drop in hgb from 9.7 last hospitalization to 8.6 on ED eval. Denies fever chills nausea vomiting significant abd
pain. Pt otherwise reports feeling well. CT noted post left partial nephrectomy with associate collection 8.4 cm diameter suggestive hematoma.
PLAN:
#new onset Sepsis during hospitalization
#Overnight fever tachycardia lactic acidosis.
Appreciate overnight staff assistance
Start empiric vanc meropenem (PCN and possible cephalosporin allergy). ID eval requested
follow blood cultures,repeat urinalysis reflex culture
Ice packs and Tylenol prn fever
received one liter bolus so far, ordered additional 1L, trend lactic acid
Metformin possibly contributing to lactic acidosis discontinued, cont sliding scale escalated to medium dose algorithm
Transferred to IMU for closer monitoring
#Acute blood loss anemia
#Renal cell carcinoma s/p recent partial Nephrectomy
Tele
received 1PRBC with good response noted
monitor H&H
transfusion prn <8 Hgb given concern active bleeding
Urology eval appreciated
pain control percocet prn
hold NSAIDs except for baby asa
#HTN
cont home lisinopril with holding parameters
#HLD
cont home statin
#obesity
#prediabetes
Updated A1c 5.7 prediabetes
cont home metformin for weight loss
Low dose sliding scale for now given hyperglycemia noted recent last hospitalization
DVT ppx SCD
Full Code
I spent a total of 45 minutes with the patient or on the floor. More than 50% of this time involved counseling and coordination of care.
Anticipated Discharge: > 48 hours
Subjective/Interval History
-
Date of Service: October 21, 2024
No acute distress resting comfortably in bed. overnight events notable for high fever associate dizziness lightheadedness. During evaluation patient had significant urinary urgency but also difficulty urinating. Urine that passed was grossly
hematuric.
Objective Data
-
Labs:
Laboratory Results
10/21/24 10/21/24 10/21/24
05:42 05:43 06:00
WBC 3.3 L Pending
Hgb 8.4 L Pending
Hct 24.2 L Pending
Plt Count 184 D Pending
Sodium 136 Pending
Potassium 3.8 Pending
Chloride 106 Pending
Carbon Dioxide 21 L Pending
BUN 19 Pending
Creatinine 1.3 Pending
Glucose 188 H Pending
Calcium 8.0 L Pending
10/21/24 10/21/24
12:00 18:00
WBC
Hgb Pending Pending
Hct Pending Pending
Plt Count
Sodium
Potassium
Chloride
Carbon Dioxide
BUN
Creatinine
Glucose
Calcium
Vital Signs:
Vital Signs
Temp Pulse Resp BP Pulse Ox
101.8 F H 112 22 118/60 92
10/21/24 06:00 10/21/24 06:00 10/21/24 06:00 10/21/24 06:00 10/21/24 06:00
I&O
10/20/24 10/21/24 10/22/24
06:59 06:59 06:59
Intake Total 970 / 970 1200 / 1200
Output Total 530 / 530 1100 / 1100
Balance 440 / 440 100 / 100
--- NOTE | 2024-10-21 07:48 | W.PN.UPDATE ---
Update Note
Progress Note Update
Seen and examined at bedside. Xiomara present during evaluation.
Overall presentation concerning for sepsis fever tachycardia lactic acidosis. Appreciate overnight staff assistance
Start empiric vanc meropenem (PCN and possible cephalosporin allergy). ID eval requested
follow blood cultures,repeat urinalysis reflex culture
Ice packs and Tylenol prn fever
received one liter bolus so far, ordered additional 1L, trend lactic acid
Metformin possibly contributing to lactic acidosis discontinued, cont sliding scale escalated to medium dose algorithm
Transfer to IMU for closer monitoring
Patient exhibiting gross hematuria, difficult peeing despite urgency, suspect patient may reguire CBI discussed with Urology
Discussed with patient, patient's Xiomara, RN, and Urology
[2024-10-21] MEDS: VANCOCIN 540 MG IV (07:52)
--- NOTE | 2024-10-21 08:49 | PHA.VAN.IN ---
Assessment
- Assessment
Renal Function: Appears elevated from baseline
Maximum Temperature: 101.8
Concomitant Antimicrobials: Meropenem 1 gram IV q8h
Plan
- Plan
Initial / Loading Dose: Vancomycin 2000 mg
Maintenance Regimen: Vancomycin 1250 mg (10 mg/kg) x 1 dose for 18:00 PM
Monitoring: Random level for 5/30 AM labs
Pharmacokinetics Vancomycin I
- -
Patient Age: 69
Patient Sex: Male
Vancomycin Day #: 1
Indication: Genito-Urinary Tract
Requesting Provider: Dr. Merritt
Pertinent Antimicrobial Allergies:
Penicillins - swelling
Cephalosporins - unknown
Height / Weight:
Height 5 ft 10 in
Actual Weight 125.5 kg
Pertinent Past Medical History: Renal cell carcinoma- s/p nephrectomy, BMI: 39.7
- Vital Signs / Lab Results
Temp Pulse Resp BP Pulse Ox
99.7 F 132 18 94/54 91
10/21/24 07:13 10/21/24 07:13 10/21/24 07:13 10/21/24 07:13 10/21/24 07:13
Lab Results - Hematology
10/19/24 10/20/24 10/21/24
06: 06:52 05:42
WBC 9.1 12.4 H 3.3 L
10/21/24
06:00
WBC Cancelled
Lab Results - Chemistry
10/19/24 10/20/24 10/21/24
06:29 06:52 05:43
BUN 14 13 19
Creatinine 1.0 1.0 1.3
Estimated Creat Clear 94 94 72
Albumin 3.8
10/21/24
06:00
BUN Cancelled
Creatinine Cancelled
Estimated Creat Clear Cancelled
Albumin
10/21/24
05:43
Lactic Acid 3.5 H
Lab Results - Urine
10/19/24 10/20/24
06:29 18:40
Urine Nitrite Negative
Urine Nitrite (Reflex) Negative
Ur Leukocyte Esterase Negative
Leukocyte Esterase Rfl 1+ A
Urine WBC
Urine WBC (Reflex) 3-5
Ur Squamous Epith Cells 0-2 0-2
Urine Bacteria Few A
Microbiology Results
10/19/24 06:29 Urine Culture - Final
Urine Diptheroids
--- NOTE | 2024-10-21 09:00 | PTCARENOTE ---
assumed care of pt from previous shift at 0715. 1L NSS bolus and IV Vanco started per JUL. report given to Clifton, IMU RN and pt and all belongings sent to room 3345 via bed.
[2024-10-21 09:11] LABS: Urine Albumin 4+ (Neg - Trace); Urine Bilirubin Negative (Negative); Urine Character Bloody (Clear); Urine Color Red; Urine Glucose Negative (Negative); Urine Ketone Negative (Negative); Urine Leukocyte 2+ (Negative); Urine Nitrite Negative (Negative); Urine Occult Blood 4+ (Negative); Urine Specific Gravity 1.015 (<1.030); Urine Urobilinogen Negative (Neg - 1+); Urine pH 6.5 (5.0-9.0)
[2024-10-21 09:32] LABS: Urine Bacteria Moderate (Negative); Urine Red Blood Cell >100 /HPF (0-2); Urine Squamous Cell 0-2 /LPF (Few); Urine White Cell 26-30 /HPF (0-5)
--- NOTE | 2024-10-21 10:00 | W.PN.URO.CBU ---
Today's Communication / Plan
-
Sepsis management
Trend bleeding with possible CT angio and embolization today if needed
Assessment / Plan
-
69M post op from robotic L partial nephrectomy 10/14
Readmitted for retroperitoneal hematoma and gross hematuria which represents bleeding at operative site, possible pseudoaneurysm formation
Post op bleeding
- Trend vitals and HGB
- Transfuse as needed for HGB <8 due to possible continued active bleeding
- Repeat HGB at noon at will plan for CT angiogram if there is further significant HGB decrease
- IR for selective embolization if unstable or not responding to fluid/product resuscitation
- Limit activity for now until stable - bedrest or chair
- NPO for now
Hematuria
- 3 way martini placed this AM with some small clots on flushing
- Continue CBI as needed to help trend hematuria
Sepsis
- Repeat urine and blood cultures
- Broad spectrum abx
Diagnosis
-
Date of Service: October 21, 2024
-
Patient Diagnosis:
L renal mass
Retroperitoneal bleed
Hematuria
Sepsis
Urinary retention
Post Op s/p L partial nephrectomy 10/14
Subjective
-
Continued voiding difficulty overnight
Fevers and tachycardia starting early AM with chills
Some hypotension
Tolerating diet
No N/V
No CP/SOB
Objective
-
Vital Signs
Temp Pulse Resp BP Pulse Ox
100.2 F 132 18 94/54 91
10/21/24 09:19 10/21/24 07:13 10/21/24 07:13 10/21/24 07:13 10/21/24 07:13
Intake and Output
10/20/24 10/21/24 10/22/24
06:59 06:59 06:59
Intake Total 970 / 970 1200 / 1200
Output Total 530 / 530 1100 / 1100
Balance 440 / 440 100 / 100
Intake:
Oral fluids 720 / 720 1200 / 1200
Blood Product Amount Infused ( 250 / 250
mL)
Packed Rbc Leukoreduced Unit 250 / 250
[id number]
Output:
Urine, Voided 530 / 530 1100 / 1100
Other:
Number of approximated SMALL 4
amounts of urine
Number of approximated MODERATE 4 2
amounts of urine
Laboratory Results
10/21/24 06:00
Physical Exam
-
General - well developed, well nourished, no acute distress
Chest - clear bilaterally
Abdomen - soft, non-tender
Genitalia - small blood at meatus
Skin - warm & dry with no rash
Neuro - AOx3, no motor deficits
Extremities - no clubbing, no cyanosis, no edema
Incision - clean, dry, no cellulitis
[2024-10-21] MEDS: STERILE WATER FOR INJECTION 20 ML IV ×2 (10:02→15:18)
[2024-10-21] MEDS: MERREM 1000 MG IV ×2 (10:03→15:19)
[2024-10-21] MEDS: ZESTRIL PO (10:05)
[2024-10-21] MEDS: PROTONIX PO (10:05)
[2024-10-21] MEDS: THERAGRAN PO (10:05)
[2024-10-21] MEDS: FEOSOL 325 MG PO ×2 (10:21→19:45)
[2024-10-21] MEDS: NOVOLOG FLEXPEN-LOW RESISTANCE SC (10:21)
[2024-10-21] MEDS: LOW STRENGTH ASPIRIN 81 MG PO (10:21)
--- NOTE | 2024-10-21 11:21 | PTCARENOTE ---
Pt arrived to floor from [address]. Transferred over to floor bed. AAOx3. PRN Roxicodone administered for 5/10 left flank pain. Temp 100.2F. Pt drowsy. SaO2 96% on 2L NC. Diminished breath sounds. Sinus tach on court recording monitor. HR 100s. MAP > 65
without pressors. Pt NPO for possible embolization in IR. CBI started in [address] for hematuria. Large clots requiring hand irrigation. Now draining pink. Vancomycin infusion completed. Pale skin appearence. Next H&H ordered for noon.
NSS infusing @ 75ml/hr.
[2024-10-21 12:17] LABS: Glucose - Point of Care 188 mg/dl (70-99)
[2024-10-21] MEDS: NOVOLOG FLEXPEN-MODERATE RESISTANCE 1 UNITS SC ×2 (12:49→18:08)
--- NOTE | 2024-10-21 14:56 | PN.CDI ---
CDI
- -
CDI:
Physician Documentation Request
Admit Date: 10/19/24 15:06
Dear Doctor Shaina,
Patient admitted with acute blood loss anemia.
10/21 Update PN, 'Overall presentation concerning for sepsis fever tachycardia lactic acidosis. Appreciate overnight staff assistance....Start empiric Vanc meropenem.'
10/21 Urology PN, 'Sepsis- Repeat urine and blood cultures- Broad spectrum abx.'
10/19 On admission, WBC 9.1, temp 98.0, HR 92, RR 22
10/21 WBC 3.3, T max 101.8, HR >90 and RR >20
Based on the above, please clarify the following in your note:
Sepsis was present on admission
Sepsis evolved during hospitalization
Other
Use of terms such as suspected, likely, concern for, or probable (associated with a specific diagnosis that is being evaluated, monitored, or treated as if it exists) are acceptable and can be coded in the inpatient setting, when documented at the
time of discharge.
Thank you,
Joslyn GEIGER,RN,CCDS
CDI Specialist
Available via tiger text
Please use your independent medical judgment in providing your response.
--- NOTE | 2024-10-21 15:37 | CON.ID ---
Consultation
-
Date/Time Consultation Requested: 10/21/2024 0748
Date/Time Consultation Performed: 10/21/2024 1500
Requesting Provider: Dr. Merritt
Performing Provider: Dr. Jung
Reason for Consultation: Clinical sepsis
Chief Complaint / Past History
History of Present Illness
Parrish Pineda is a 69-year-old man being evaluated at the request of Dr. Merritt in regards to clinical sepsis. History is obtained from chart review, along with patient interview.
Patient has a significant past medical history of a left renal lesion, diagnosed around August 24, 2024. He underwent a robotic partial left nephrectomy on 10/14/24, and was discharged 2 days later in stable condition. He reports that once home he
was well for several days although he did have some left flank discomfort. He presented to the emergency room on 10/19 secondary to marked pneumaturia, along with increasing left flank pain. He denies any fevers or chills at home, and denied any
dysuria.
Workup in the emergency room revealed a retroperitoneal hematoma, but at admission, he was not found to have a leukocytosis. Earlier this a.m., he developed tachycardia along with a fever and an elevated lactate and he was started on empiric
antibiotics for suspected sepsis. Infectious Diseases assessed, and upon further antimicrobial therapy at this time.
At present, he reports feeling okay he denies any specific pain. He denies any fevers prior to admission.
Past History
Additional Past Medical History:
Left renal lesion
HTN
HLD
GERD
DM
Hx CVA
Additional Past Surgical History:
Appendectomy
Cholecystectomy
Robotic partial left nephrectomy (10/14/2024)
Allergy History:
Penicillins Allergy (Verified 10/19/24 17:15)
Swelling
Medications Reviewed: Yes
Current Antibiotics:
Vancomycin (dosing per pharmacy)
Meropenem
Social History
Tobacco: Non-Smoker
Alcohol: None
Drug: None
Personal:
Living: With Family
Employment: Employed ([employer])
Family History
Family History: Not Pertinent
Review of Systems
Vital Signs
Temp Pulse Resp BP Pulse Ox
99.2 F 106 24 111/45 95
10/21/24 11:39 10/21/24 13:45 10/21/24 13:45 10/21/24 12:00 10/21/24 13:45
Physical Exam
Physical Exam
Constitutional: No Acute Distress, Comfortable, Chronically Ill, Non-toxic and Obese
Head: Normocephalic
Eyes: Pupils Equal, Pupils Round, No Conjunctival Hemorrhage and Sclera Anicteric
Oral: No Thrush and No Ulcers
Cardiovascular: Regular Rate and S1/S2; Negative S3/S4
Pulmonary: Clear; Negative Wheezes, Rales or Rhonchi
Gastrointestinal: Soft, Non Tender, Non Distended, Normal Bowel Sounds and No Rebound
Genito-Urinary: Franco, Clear Urine, Hematuria and Other (Left flank with ecchymosis); Negative Turbid Urine
Extremities: Edema; Negative Cyanosis or Erythema
Skin: Warm and Dry; Negative Rash or Jaundice
Neurological: Awake and Alert
Psychological: Calm
.
Lab / Diagnostic Study Results
10/21/24 06:00
Abs Immat Gran (auto) 0.0 10^3/uL (0-0.05) 10/19/24 06:29
Absolute Neuts (auto) 6.9 10^3/uL (1.4-6.5) H 10/19/24 06:29
Absolute Lymphs (auto) 1.4 10^3/uL (1.2-3.4) 10/19/24 06:29
Absolute Monos (auto) 0.7 10^3/uL (0.1-0.6) H 10/19/24 06:29
Absolute Basos (auto) 0.0 10^3/uL (0-0.2) 10/19/24 06:29
Immature Gran % 0.3 % (0-0.5) 10/19/24 06:29
Neutrophils % 76.6 % (42.2-75.2) H 10/19/24 06:29
Lymphocytes % 15.0 % (20.5-51.1) L 10/19/24 06:29
Monocytes % 7.7 % (1.7-9.3) 10/19/24 06:
Eosinophils % 0.2 % (0-6) 10/19/24 06:
Basophils % 0.2 % (0-2) 10/19/24 06:
PT 14.1 Sec (11.4-14.6) 10/19/24 21:19
INR 1.06 10/19/24 21:19
Lactic Acid 2.0 mmol/L (0.7-2.0) 10/21/24 12:29
Urine WBC /HPF (0-5) 10/20/24 18:40
Ur Squamous Epith Cells 0-2 /LPF (Few) 10/21/24 08:33
Microbiology Results
Micro:
10/21/24 08:33 Influenza Types A & B (ELIN) - Final
Nasal Swab Negative for Influenza A & B, NAAT
Negative results must be combined with clinical observations
and patient history.
Nucleic Acid Amplification test (NAAT)performed on the
[employer] NOW platform.
10/21/24 08:33 Urine Culture - Pending
Urine
10/21/24 05:48 Blood Culture - Pending
Blood/Venous
10/21/24 05:51 Blood Culture - Pending
Blood/Venous
10/20/24 18:40 Urine Culture - Pending
Urine
10/19/24 06:29 Urine Culture - Final
Urine Diptheroids
Imaging:
10/19/2024 CT abdomen/pelvis: S/p partial left nephrectomy. At the left lower pole there is mixed attenuation collection measuring up to 8.4 cm which likely represents hematoma. No active contrast extravasation identified. A 5.8 cm increased
attenuation masslike structure within the urinary bladder likely represents blood clot. 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 Please see full dictation for additional detail.
Assessment / Plan
Fever
Tachycardia
Clinical sepsis
Lactic acidosis
S/p partial left nephrectomy
Leukopenia
Pyuria
Reported PCN allergy.
- No history of cephalosporin allergy
Left renal lesion
HTN
HLD
GERD
DM
Hx CVA
Recommendations:
Discontinue further vancomycin for the present.
Change meropenem to cefepime 1 g IV every 6 hours
Await further culture data to guide antimicrobial selection and potential de-escalation.
Monitor white count and temperature curve.
Continue with supportive measures.
Further recommendations as additional data is returned.
[2024-10-21 17:52] LABS: Hematocrit 21.9 % (39.0-52.0); Hemoglobin 7.6 g/dL (13.0-18.0)
[2024-10-21] MEDS: PEPCID 20 MG PO (18:09)
[2024-10-21] MEDS: LIPITOR 40 MG PO (18:09)
[2024-10-21 18:17] LABS: Glucose - Point of Care 176 mg/dl (70-99)
--- NOTE | 2024-10-21 19:18 | PTCARENOTE ---
Hgb resulted 7.6. Blood culture returning positive for Gram (-) bacilli. Dr. Merritt, notified. New order for 1 unit of PRBC's acknowledged and infusing.
[2024-10-21] MEDS: PROTONIX 40 MG PO (19:45)
[2024-10-21 21:12] LABS: COVID-19 Antigen Negative (Negative)
[2024-10-21 21:41] LABS: Glucose - Point of Care 223 mg/dl (70-99)
[2024-10-21] MEDS: MAXIPIME 1000 MG IV (21:41)
[2024-10-21] MEDS: ELAVIL 50 MG PO (21:41)
[2024-10-21] MEDS: STERILE WATER FOR INJECTION 10 ML IV (21:42)
--- NOTE | 2024-10-21 22:26 | PTCARENOTE ---
recieved patient from previous RN. Patient has CBI and had 1 unit of blood transfusing when this RN began shift. will repeat H&H after blood is done. patient has 2 other units of blood ready but order was only for the 1 unit. called blood bank and
staff said they would look into why the 2 other units were there. CBI is draining pink to clear urine. Patient has no complaints of pain at this time. family at bedside. assessment and vital signs as documented. call dawn in reach.
[2024-10-22] VITALS (39 sets, daily range): BP systolic 86–162; BP diastolic 40–114; BMI 39.1
[2024-10-22 00:42] LABS: Hematocrit 27.5 % (39.0-52.0); Hemoglobin 9.4 g/dL (13.0-18.0)
[2024-10-22] MEDS: ROXICODONE 5 MG PO ×2 (01:23→18:31)
[2024-10-22] MEDS: NSS 1000 IV (01:44)
[2024-10-22] MEDS: TYLENOL 1000 MG PO ×3 (01:52→13:32)
[2024-10-22] MEDS: MAXIPIME 1000 MG IV ×4 (03:56→21:02)
[2024-10-22] MEDS: STERILE WATER FOR INJECTION 10 ML IV ×4 (03:57→21:02)
[2024-10-22 04:19] LABS: Hemoglobin 7.7 g/dL (13.0-18.0); Mean Corp Hgb Conc. 33.5 g/dL (33.0-37.0); Mean Corpuscular Hgb 30.2 pg (27.0-31.0); Mean Corpuscular Volume 90.2 fL (80.0-94.0); Platelet Count 186 10^3/uL (130-400); Red Blood Cell Count 2.55 10^6/uL (4.70-6.10); Red Cell Dist. Width 14.6 % (11.5-14.5); White Blood Cell Count 19.2 10^3/uL (4.8-10.8)
[2024-10-22 04:42] LABS: Blood Urea Nitrogen 24 mg/dl (9-20); Carbon Dioxide 22 mmol/L (22-30); Chloride 110 mmol/L (98-107); Estimated Creatinine Clearance 72 ml/min; Glucose 143 mg/dl (70-99); Magnesium 1.5 mg/dl (1.6-2.3); Phosphorus 2.4 mg/dl (2.5-4.5); Potassium 4.1 mmol/L (3.5-5.1); Sodium 137 mmol/L (135-145); eGFR 59.84
[2024-10-22] MEDS: PROTONIX 40 MG PO ×2 (08:04→20:21)
[2024-10-22] MEDS: FEOSOL 325 MG PO ×2 (08:04→20:21)
[2024-10-22] MEDS: ZESTRIL 10 MG PO (08:05)
[2024-10-22] MEDS: THERAGRAN 1 TABLET PO (08:05)
[2024-10-22] MEDS: LOW STRENGTH ASPIRIN 81 MG PO (08:05)
--- NOTE | 2024-10-22 08:37 | W.PN.URO.CBU ---
Today's Communication / Plan
-
CT angiogram
IR consult for possible selective embolization
Assessment / Plan
-
69M post op from robotic L partial nephrectomy 10/14
Readmitted for retroperitoneal hematoma and gross hematuria which represents bleeding at operative site, possible pseudoaneurysm formation
Post op bleeding
- s/p third unit transfused this AM after HGB not responding to 1 unit last night
- CT angio to eval for location of persistent bleeding
- IR for selective embolization
- Limit activity for now until stable - bedrest or chair
- NPO
Hematuria
- 3 way martini placed this AM with some small clots on flushing
- Continue CBI as needed to help trend hematuria
Sepsis
- Repeat urine and blood cultures
- Broad spectrum abx
- Appreciate ID recommendations
Diagnosis
-
Date of Service: October 22, 2024
-
Patient Diagnosis:
L renal mass
Retroperitoneal bleed
Hematuria
Sepsis
Urinary retention
Post Op s/p L partial nephrectomy 10/14
Subjective
-
pain controlled
mild fever overnight
s/p 2 units transfused overnight
Objective
-
Vital Signs
Temp Pulse Resp BP Pulse Ox
98.5 F 90 18 126/50 100
10/22/24 08:08 10/22/24 08:05 10/22/24 07:50 10/22/24 08:05 10/22/24 06:00
Intake and Output
10/21/24 10/22/24 10/23/24
06:59 06:59 06:59
Intake Total 1200 / 1200 250 / 250 250 / 250
Output Total 1100 / 1100 2150 / 2150
Balance 100 / 100 -1900 / -1900 250 / 250
Intake:
Oral fluids 1200 / 1200
Blood Product Amount Infused ( 250 / 250 250 / 250
mL)
Packed Rbc Leukoreduced Unit 250 / 250
[id number]
Packed Rbc Leukoreduced Unit 0 / 0 250 / 250
[id number]
Output:
Urine, Voided 1100 / 1100
True Urine Output from CBI 2149 / 2149
Other:
Number of approximated SMALL 4
amounts of urine
Number of approximated MODERATE 2
amounts of urine
Laboratory Results
10/22/24 03:57
10/22/24 03:57
Physical Exam
-
General - well developed, well nourished, no acute distress
Chest - clear bilaterally
Abdomen - soft, non-tender, positive bowel sounds, no CVAT, no incisional pain or distention
Genitalia - normal
Rectal - normal
Skin - warm & dry with no rash
Neuro - AOx3, no motor deficits
Extremities - no clubbing, no cyanosis, no edema
Incision - clean, dry
Dressing - clean, dry, intact
--- NOTE | 2024-10-22 08:39 | PTCARENOTE ---
On walking rounds pt is AAAOx3 blood was infusing and now completed. Pt is cold states he has a RAMIREZ given Tylenol as ordered. . # way martini with bloody drainage. . Pt now for CT scan of abdomen. Meds given Now NPO. at bedside.
--- NOTE | 2024-10-22 08:47 | W.PN.HOSP.TC ---
Today's Communication/Plan
-
cont abx as per ID
monitor H&H, transfuse prn Hgb<8
replete Mg Ca
pain control
fever control
Assessment / Plan
Assessment / Plan
Physical Exam
General: pallor noted. No cyanosis or jaundice. Obese
HEENT: Throat clear. PERRLA Normocephalic atraumatic
NECK: Supple. No JVD Carotid Bruits
RESPIRATORY: Lungs clear to auscultation. No crackles wheezes stridor
CVS: S1, S2 normal. RRR. No murmur, rub or gallop.
ABDOMEN: Soft, mild left-sided tenderness healing laparoscopic surgical wound sites. No distension. BS+/normal.
EXTREMITIES: No peripheral cyanosis or edema.
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
IMPRESSION:
69M Obesity prediabetes HTN HLD GERD history of renal cell carcinoma status post partial nephrectomy 5 days ago presenting with concerns of hematuria starting morning upon awakening. Very mild left-sided flank pain as well. Otherwise reports
recovering well at home. Denies any fevers nausea vomiting any difficulty with urination. Not on blood thinners. VSS labs notable for drop in hgb from 9.7 last hospitalization to 8.6 on ED eval. Denies fever chills nausea vomiting significant abd
pain. Pt otherwise reports feeling well. CT noted post left partial nephrectomy with associate collection 8.4 cm diameter suggestive hematoma.
PLAN:
#new onset Sepsis during hospitalization
#Overnight fever tachycardia lactic acidosis.
Appreciate overnight staff assistance
Start empiric vanc meropenem (PCN and possible cephalosporin allergy). ID eval appreciated vanc dc'd and meropenem switched to Cefipime
follow blood cultures,repeat urinalysis reflex culture
Ice packs and Tylenol prn fever
Lactic acidosis resolved with IVF bolus
Metformin possibly contributing to lactic acidosis discontinued, cont sliding scale escalated to medium dose algorithm
Transferred to IMU for closer monitoring
#Acute blood loss anemia
#Renal cell carcinoma s/p recent partial Nephrectomy
Tele
received 4 PRBC over the course of hospitalization
monitor H&H
transfusion prn <8 Hgb given concern active bleeding
cont Franco CBI as per Urology
Urology eval appreciated
pain control prn Tylenol oxycodone morphine
hold NSAIDs except for baby asa
CT abd/pelvis angio appreciated No definitive active arterial extravasation of contrast. 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
IR eval appreciated noted on Left renal arteriogram pseudoaneurysm and suspected very small volume active contrast extravasation identified arising from branch vessel off the more superior left renal artery, successful transcatheter coil
embolization performed.
#Hypomagnesemia
#Hypocalcemia
monitor and replete as necessary
#HTN
cont home lisinopril with holding parameters
#HLD
cont home statin
#obesity
#prediabetes
Updated A1c 5.7 prediabetes
metformin on hold d/t lactic acidosis as above
moderate dose sliding scale
DVT ppx SCD
Full Code
discussed with patient and patient's Xiomara and son Logan.
I spent a total of 50 minutes with the patient or on the floor. More than 50% of this time involved counseling and coordination of care.
Anticipated Discharge: 24 - 48 hours
Subjective/Interval History
-
Date of Service: October 22, 2024
Fever and chills persist. Drop in hgb also noted in AM.
Objective Data
-
Labs:
Laboratory Results
10/22/24 10/22/24
00:18 03:57
WBC 19.2 H
Hgb 9.4 L D 7.7 L
Hct 27.5 L 23.0 L
Plt Count 186
Sodium 137
Potassium 4.1
Chloride 110 H
Carbon Dioxide 22
BUN 24 H
Creatinine 1.3
Glucose 143 H
Calcium 7.0 L
Vital Signs:
Vital Signs
Temp Pulse Resp BP Pulse Ox
98.5 F 90 18 126/50 100
10/22/24 08:08 10/22/24 08:05 10/22/24 07:50 10/22/24 08:05 10/22/24 06:00
I&O
10/21/24 10/22/24 10/23/24
06:59 06:59 06:59
Intake Total 1200 / 1200 250 / 250 250 / 250
Output Total 1100 / 1100 2150 / 2150
Balance 100 / 100 -1900 / -1900 250 / 250
[2024-10-22] MEDS: NOVOLOG FLEXPEN-MODERATE RESISTANCE 1 UNITS SC ×2 (09:00→17:38)
[2024-10-22 09:06] LABS: Glucose - Point of Care 158 mg/dl (70-99)
--- NOTE | 2024-10-22 11:16 | PTCARENOTE ---
Unit 2 of blood now infusing
--- NOTE | 2024-10-22 11:26 | W.PN.ID1 ---
Date of Service
Date of Service: October 22, 2024
Today's Communication
Continue antibiotics
Assessment / Plan
Fever
Tachycardia
Clinical sepsis
Lactic acidosis
S/p partial left nephrectomy with postop bleeding
Leukocytosis
Complicated UTI with E. coli
E. coli bacteremia
Pyuria
Reported PCN allergy.
- No history of cephalosporin allergy
Left renal lesion
HTN
HLD
GERD
DM
Hx CVA
Recommendations:
Continue cefepime 1 g IV every 6 hours
Await further culture data to guide antimicrobial selection and potential de-escalation.
Monitor white count and temperature curve.
Patient for IR evaluation and potential embolization
Continue with supportive measures.
����������������������������������������������������������
Chief Complaint
-: Bacteremia
Subjective / Review of Systems
Patient seen and examined. Reports some left flank pain. Chart reviewed.
Review of Systems: Fever
Vital Signs / Physical Exam
Vital Signs
Vital Signs
Temp Pulse Resp BP Pulse Ox
100.1 F 103 25 119/60 93
10/22/24 11:04 10/22/24 11:15 10/22/24 11:15 10/22/24 11:04 10/22/24 10:30
Physical Exam
Constitutional: Comfortable, Non-toxic and Obese
Eyes: Sclera Anicteric
Cardiovascular: S1/S2; Negative S3/S4
Pulmonary: Non Labored; Negative Wheezes or Rales
Gastrointestinal: Soft, Non Tender and Non Distended
Genito-Urinary: Franco (Triple-lumen) and Hematuria
Extremities: Edema; Negative Cyanosis or Erythema
Neurological: Awake and Alert
Objective Data
Lab Data
Lab Results
10/22/24 03:57
10/22/24 03:57
PT 14.1 Sec (11.4-14.6) 10/19/24 21:19
INR 1.06 10/19/24 21:19
APTT 33.0 Sec (23.4-35.0) 10/19/24 21:19
Estimated Creat Clear 72 ml/min 10/22/24 03:57
Lactic Acid Cancelled 10/21/24 18:00
Total Bilirubin 0.7 mg/dl (0.2-1.3) 10/19/24 06:29
AST 28 U/L (17-59) 10/19/24 06:29
ALT 27 U/L (0-50) 10/19/24 06:29
Alkaline Phosphatase 91 U/L (38-126) 10/19/24 06:29
Most recent labs reviewed.
Micro Results:
10/20/24 18:40 Urine Culture - Preliminary
Urine Escherichia coli
10/21/24 05:48 Blood Culture - Preliminary
Blood/Venous Escherichia coli
Gram Stain - Preliminary
10/21/24 05:51 Blood Culture - Preliminary
Blood/Venous Escherichia coli
Gram Stain - Preliminary
10/21/24 08:33 Influenza Types A & B (ELIN) - Final
Nasal Swab Negative for Influenza A & B, NAAT
Negative results must be combined with clinical observations
and patient history.
Nucleic Acid Amplification test (NAAT)performed on the
[employer] platform.
10/21/24 08:33 Urine Culture - Pending
Urine
10/19/24 06:29 Urine Culture - Final
Urine Diptheroids
Imaging:
10/19/2024 CT abdomen/pelvis: S/p partial left nephrectomy. At the left lower pole there is mixed attenuation collection measuring up to 8.4 cm which likely represents hematoma. No active contrast extravasation identified. A 5.8 cm increased
attenuation masslike structure within the urinary bladder likely represents blood clot. 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 Please see full dictation for additional detail.
[2024-10-22] MEDS: NOVOLOG FLEXPEN-MODERATE RESISTANCE SC (11:34)
[2024-10-22 11:41] LABS: Glucose - Point of Care 119 mg/dl (70-99)
--- NOTE | 2024-10-22 16:00 | W.PN.UPDATE ---
Update Note
Progress Note Update
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 Coil embolization performed successfully. No immediate complication. Mynx closure device deployed R CF arteriotomy, bedrest x 2 hrs.
--- NOTE | 2024-10-22 16:37 | PTCARENOTE ---
Pt Back in room , pt to lay flat until 6 PM . Pt more alert and colorlooks better
[2024-10-22 17:31] LABS: Hemoglobin 9.8 g/dL (13.0-18.0)
[2024-10-22 17:35] LABS: Glucose - Point of Care 176 mg/dl (70-99)
[2024-10-22] MEDS: LIPITOR 40 MG PO (17:39)
[2024-10-22] MEDS: PEPCID 20 MG PO (17:39)
[2024-10-22] MEDS: NSS IV (17:44)
[2024-10-22] MEDS: MAGNESIUM SULFATE 100 IV (21:02)
[2024-10-22] MEDS: ELAVIL 50 MG PO (21:03)
[2024-10-22] MEDS: CALCIUM GLUCONATE 100 IV (21:03)
[2024-10-22 21:37] LABS: Glucose - Point of Care 202 mg/dl (70-99)
[2024-10-23] VITALS (16 sets, daily range): BP systolic 63–167; BP diastolic 12–81; BMI 38.7
[2024-10-23] MEDS: ROXICODONE 5 MG PO ×3 (01:55→19:56)
[2024-10-23] MEDS: STERILE WATER FOR INJECTION 10 ML IV ×2 (03:41→10:21)
[2024-10-23] MEDS: MAXIPIME 1000 MG IV ×2 (03:41→10:20)
[2024-10-23 04:09] LABS: Hematocrit 28.9 % (39.0-52.0); Hemoglobin 10.1 g/dL (13.0-18.0); Mean Corp Hgb Conc. 34.9 g/dL (33.0-37.0); Mean Corpuscular Hgb 30.7 pg (27.0-31.0); Mean Corpuscular Volume 87.8 fL (80.0-94.0); Platelet Count 210 10^3/uL (130-400); Red Blood Cell Count 3.29 10^6/uL (4.70-6.10); Red Cell Dist. Width 14.6 % (11.5-14.5)
[2024-10-23 04:35] LABS: Blood Urea Nitrogen 23 mg/dl (9-20); Calcium 7.8 mg/dl (8.4-10.2); Carbon Dioxide 22 mmol/L (22-30); Chloride 110 mmol/L (98-107); Estimated Creatinine Clearance 71 ml/min; Glucose 173 mg/dl (70-99); Magnesium 2.5 mg/dl (1.6-2.3); Phosphorus 2.6 mg/dl (2.5-4.5); Potassium 4.2 mmol/L (3.5-5.1); Sodium 138 mmol/L (135-145); eGFR 59.84
--- NOTE | 2024-10-23 04:52 | PTCARENOTE ---
Received pt at change of shift. Neurovascular checks completed with no concerns. Pt c/o lower abdominal discomfort; Katherine administered per order (see MAR). [address] way martini clamped by physician on dayshift; martini draining diane urine; no clots or
blood visible. Call dawn within reach.
--- NOTE | 2024-10-23 07:16 | W.PN.HOSP.TC ---
Today's Communication/Plan
-
abx as per ID
out of bed to chair
incentive spirometer, wean O2 supplementation as tolerated
Franco as per Urology
Assessment / Plan
Assessment / Plan
Physical Exam
General: pallor improved/resolved. No cyanosis or jaundice. Obese
HEENT: Throat clear. PERRLA Normocephalic atraumatic
NECK: Supple. No JVD Carotid Bruits
RESPIRATORY: Lungs clear to auscultation. No crackles wheezes stridor
CVS: S1, S2 normal. RRR. No murmur, rub or gallop.
ABDOMEN: Soft, mild left-sided tenderness healing laparoscopic surgical wound sites. No distension. BS+/normal.
EXTREMITIES: No peripheral cyanosis or edema.
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
IMPRESSION:
69M Obesity prediabetes HTN HLD GERD history of renal cell carcinoma status post partial nephrectomy 5 days ago presenting with concerns of hematuria starting morning upon awakening. Very mild left-sided flank pain as well. Otherwise reports
recovering well at home. Denies any fevers nausea vomiting any difficulty with urination. Not on blood thinners. VSS labs notable for drop in hgb from 9.7 last hospitalization to 8.6 on ED eval. Denies fever chills nausea vomiting significant abd
pain. Pt otherwise reports feeling well. CT noted post left partial nephrectomy with associate collection 8.4 cm diameter suggestive hematoma.
PLAN:
#new onset Sepsis during hospitalization
#Overnight fever tachycardia lactic acidosis.
Appreciate overnight staff assistance
Start empiric vanc meropenem (PCN and possible cephalosporin allergy). ID eval appreciated vanc dc'd and meropenem switched to Cefipime
Urine Blood cx's pos for E. coli sensitive to cefepime
Ice packs and Tylenol prn fever
Lactic acidosis resolved with IVF bolus
Metformin possibly contributing to lactic acidosis discontinued, cont sliding scale escalated to medium dose algorithm
Transferred to IMU for closer monitoring
#Acute blood loss anemia
#Renal cell carcinoma s/p recent partial Nephrectomy
Tele
received 4 PRBC over the course of hospitalization
monitor H&H
transfusion prn <8 Hgb given concern active bleeding
cont Franco CBI as per Urology
Urology eval appreciated
pain control prn Tylenol oxycodone morphine
hold NSAIDs except for baby asa
CT abd/pelvis angio appreciated No definitive active arterial extravasation of contrast. 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
IR eval appreciated noted on Left renal arteriogram pseudoaneurysm and suspected very small volume active contrast extravasation identified arising from branch vessel off the more superior left renal artery, successful transcatheter coil
embolization performed.
H&H since improved
#Acute Hypoxia
#EKATERINA cpap
#Possible Obesity Hypoventilation syndrome
cont home CPAP
wean O2 supplementation as tolerated
incentive Spirometer
#Hypomagnesemia
#Hypocalcemia
monitor and replete as necessary
#HTN
cont home lisinopril with holding parameters
#HLD
cont home statin
#obesity
#prediabetes
#Hyperglycemia
Updated A1c 5.7 prediabetes
metformin on hold d/t lactic acidosis as above
moderate dose sliding scale
carb controlled diet
DVT ppx SCD
Full Code
discussed with patient and patient's Xiomara
I spent a total of 45 minutes with the patient or on the floor. More than 50% of this time involved counseling and coordination of care.
Anticipated Discharge: 24 - 48 hours
Subjective/Interval History
-
Date of Service: October 23, 2024
no acute distress, reporting significant improvement in overall symptoms. Pain well controlled with current pain regimen.
Objective Data
-
Labs:
Laboratory Results
10/23/24
03:53
WBC 16.0 H
Hgb 10.1 L
Hct 28.9 L
Plt Count 210
Sodium 138
Potassium 4.2
Chloride 110 H
Carbon Dioxide 22
BUN 23 H
Creatinine 1.3
Glucose 173 H
Calcium 7.8 L
Vital Signs:
Vital Signs
Temp Pulse Resp BP Pulse Ox
99.4 F 94 19 150/72 98
10/23/24 04:36 10/23/24 04:48 10/23/24 04:48 10/23/24 04:48 10/23/24 04:48
I&O
10/22/24 10/23/24 10/24/24
06:59 06:59 06:59
Intake Total 250 / 250 700 / 700
Output Total 2150 / 2150 1900 / 1900
Balance -1900 / -1900 -1200 / -1200
[2024-10-23 07:52] LABS: Glucose - Point of Care 170 mg/dl (70-99)
[2024-10-23] MEDS: NOVOLOG FLEXPEN-MODERATE RESISTANCE 1 UNITS SC ×3 (08:46→17:58)
[2024-10-23] MEDS: THERAGRAN 1 TABLET PO (08:46)
[2024-10-23] MEDS: PROTONIX 40 MG PO ×2 (08:46→19:56)
[2024-10-23] MEDS: LOW STRENGTH ASPIRIN 81 MG PO (08:46)
[2024-10-23] MEDS: FEOSOL 325 MG PO ×2 (08:46→19:56)
[2024-10-23] MEDS: ZESTRIL 10 MG PO (08:46)
--- NOTE | 2024-10-23 11:36 | W.PN.URO.CBU ---
Today's Communication / Plan
-
Trial of void
continue antibiotics
Assessment / Plan
-
69M post op from robotic L partial nephrectomy 10/14
Readmitted for retroperitoneal hematoma and gross hematuria which represents bleeding at operative site, possible pseudoaneurysm formation
Post op bleeding
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
- HGB stable post 3 units transfusion pre embolization
- Okay to increase activity, ambulate, out of bed to chair
Hematuria
- Resolved. Cath flushed with no residual bleeding
- Martini removed this AM for trial of void
Sepsis
- Clinical sepsis resolved
- E coli bacteremia with E coli in urine
- Continue abx course per ID
Diagnosis
-
Date of Service: October 23, 2024
-
Patient Diagnosis:
L renal mass
Retroperitoneal bleed
Hematuria
Sepsis
Urinary retention
Post Op s/p L partial nephrectomy 10/14
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
Subjective
-
feeling well
no issues overnight
Objective
-
Vital Signs
Temp Pulse Resp BP Pulse Ox
98.5 F 94 19 150/72 98
10/23/24 07:51 10/23/24 04:48 10/23/24 04:48 10/23/24 04:48 10/23/24 04:48
Intake and Output
10/22/24 10/23/24 10/24/24
06:59 06:59 06:59
Intake Total 250 / 250 700 / 700
Output Total 2150 / 2150 1900 / 1900
Balance -1900 / -1900 -1200 / -1200
Intake:
IV piggybacks 200 / 200
Blood Product Amount Infused ( 250 / 250 500 / 500
mL)
Packed Rbc Leukoreduced Unit 250 / 250
[id number]
Packed Rbc Leukoreduced Unit 0 / 0 250 / 250
[id number]
Packed Rbc Leukoreduced Unit 250 / 250
[id number]
Output:
Urine, Martini 1700 / 1700
True Urine Output from CBI 2150 / 2150 200 / 200
Laboratory Results
10/23/24 03:53
10/23/24 03:53
Physical Exam
-
General - well developed, well nourished, no acute distress
Chest - clear bilaterally
Abdomen - soft, non-tender
- martini in place, diane urine
--- NOTE | 2024-10-23 12:43 | W.PN.ID1 ---
Date of Service
Date of Service: October 23, 2024
Today's Communication
Deescalate to ceftriaxone.
Assessment / Plan
Complicated UTI with E. coli
E. coli bacteremia
S/p partial left nephrectomy with postop bleeding
. 10/22 s/p coil embolization of pseudoaneurysm
Fever
Tachycardia
Clinical sepsis
Lactic acidosis
Leukocytosis- trending down
Pyuria
Reported PCN allergy.
- No history of cephalosporin allergy
Left renal lesion
HTN
HLD
GERD
DM
Hx CVA
Recommendations:
Narrow cefepime to ceftriaxone.
Monitor white count and temperature curve.
Continue with supportive measures.
����������������������������������������������������������
Chief Complaint
-: Bacteremia
Subjective / Review of Systems
Feels well today.
Vital Signs / Physical Exam
Vital Signs
Vital Signs
Temp Pulse Resp BP Pulse Ox
99.7 F 94 19 150/72 93
10/23/24 11:51 10/23/24 04:48 10/23/24 04:48 10/23/24 04:48 10/23/24 08:15
Selected Entries
10/22/24
14:00
Temp 102.3 F H
Physical Exam
Constitutional: Comfortable, Non-toxic and Obese
Eyes: Sclera Anicteric
Cardiovascular: Regular Rate and S1/S2
Pulmonary: Clear and Non Labored
Gastrointestinal: Soft, Non Tender and Non Distended
Extremities: Edema
Neurological: AO x 3
Objective Data
Lab Data
Lab Results
10/23/24 03:53
10/23/24 03:53
PT 14.1 Sec (11.4-14.6) 10/19/24 21:19
INR 1.06 10/19/24 21:19
APTT 33.0 Sec (23.4-35.0) 10/19/24 21:19
Estimated Creat Clear 71 ml/min 10/23/24 03:53
Lactic Acid Cancelled 10/21/24 18:00
Total Bilirubin 0.7 mg/dl (0.2-1.3) 10/19/24 06:29
AST 28 U/L (17-59) 10/19/24 06:29
ALT 27 U/L (0-50) 10/19/24 06:29
Alkaline Phosphatase 91 U/L (38-126) 10/19/24 06:29
Most recent labs reviewed.
Micro Results:
10/21/24 08:33 Urine Culture - Final
Urine Escherichia coli
10/20/24 18:40 Urine Culture - Final
Urine Escherichia coli
10/21/24 05:51 Blood Culture - Final
Blood/Venous Escherichia coli
Gram Stain - Final
10/21/24 05:48 Blood Culture - Final
Blood/Venous Escherichia coli
Gram Stain - Final
10/21/24 08:33 Influenza Types A & B (ELIN) - Final
Nasal Swab Negative for Influenza A & B, NAAT
Negative results must be combined with clinical observations
and patient history.
Nucleic Acid Amplification test (NAAT)performed on the
[employer] platform.
10/19/24 06:29 Urine Culture - Final
Urine Diptheroids
Imaging:
10/19/2024 CT abdomen/pelvis: S/p partial left nephrectomy. At the left lower pole there is mixed attenuation collection measuring up to 8.4 cm which likely represents hematoma. No active contrast extravasation identified. A 5.8 cm increased
attenuation masslike structure within the urinary bladder likely represents blood clot. 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 Please see full dictation for additional detail.
[2024-10-23 12:54] LABS: Glucose - Point of Care 170 mg/dl (70-99)
[2024-10-23] MEDS: ROCEPHIN 2000 MG IV (13:15)
[2024-10-23] MEDS: STERILE WATER FOR INJECTION 20 ML IV (13:15)
--- NOTE | 2024-10-23 17:02 | PTCARENOTE ---
OOB most of the day- just ambulated to the lounge and stayed there about an hour. GASTON. Pale, tired pain minimal. Franco removed by MD today and has voided adequately since. Appetite fair. at bedside all day.
[2024-10-23 17:05] LABS: Glucose - Point of Care 189 mg/dl (70-99)
[2024-10-23] MEDS: PEPCID 20 MG PO (17:57)
[2024-10-23] MEDS: LIPITOR 40 MG PO (17:57)
[2024-10-23] MEDS: TYLENOL 1000 MG PO (17:58)
[2024-10-23] MEDS: ELAVIL 50 MG PO (19:56)
[2024-10-23 21:24] LABS: Glucose - Point of Care 168 mg/dl (70-99)
[2024-10-24] VITALS (14 sets, daily range): BP systolic 94–133; BP diastolic 37–90; PULSE 96–98; O2SAT 93–96; BMI 38.5
--- NOTE | 2024-10-24 02:44 | PTCARENOTE ---
Received pt at change of shift. Pt AAOx3; c/o of pain in low back. Administered PRN Katherine (see MAR). Franco removed during dayshift and pt actively using the urinal at bedside with no issues. Urine diane in color. Pt has own CPAP at bedside; RT
aware; forms signed and placed in chart. Resting in bed with call dawn in reach.
[2024-10-24 05:53] LABS: Hematocrit 32.1 % (39.0-52.0); Hemoglobin 11.1 g/dL (13.0-18.0); Mean Corp Hgb Conc. 34.6 g/dL (33.0-37.0); Mean Corpuscular Hgb 30.7 pg (27.0-31.0); Mean Corpuscular Volume 88.9 fL (80.0-94.0); Mean Platelet Volume 9.5 fL (7.4-10.4); Platelet Count 179 10^3/uL (130-400); Red Blood Cell Count 3.61 10^6/uL (4.70-6.10); Red Cell Dist. Width 14.5 % (11.5-14.5); White Blood Cell Count 12.5 10^3/uL (4.8-10.8)
[2024-10-24 06:27] LABS: Blood Urea Nitrogen 28 mg/dl (9-20); Calcium 7.9 mg/dl (8.4-10.2); Carbon Dioxide 24 mmol/L (22-30); Chloride 106 mmol/L (98-107); Estimated Creatinine Clearance 77 ml/min; Glucose 167 mg/dl (70-99); Magnesium 2.4 mg/dl (1.6-2.3); Phosphorus 2.5 mg/dl (2.5-4.5); Potassium 3.9 mmol/L (3.5-5.1); Sodium 135 mmol/L (135-145); eGFR > 60.00
--- NOTE | 2024-10-24 07:01 | W.PN.HOSP.TC ---
Today's Communication/Plan
-
cont w/ abx as per ID
stable for downgrade to Tele
resume home metformin, cont gycemic control
PT/OT
discharge planning
Assessment / Plan
Assessment / Plan
Physical Exam
General: pallor improved/resolved. No cyanosis or jaundice. Obese
HEENT: Throat clear. PERRLA Normocephalic atraumatic
NECK: Supple. No JVD Carotid Bruits
RESPIRATORY: Lungs clear to auscultation. No crackles wheezes stridor
CVS: S1, S2 normal. RRR. No murmur, rub or gallop.
ABDOMEN: Soft, mild left-sided tenderness healing laparoscopic surgical wound sites. No distension. BS+/normal.
EXTREMITIES: No peripheral cyanosis or edema.
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
IMPRESSION:
69M Obesity prediabetes HTN HLD GERD history of renal cell carcinoma status post partial nephrectomy 5 days ago presenting with concerns of hematuria starting morning upon awakening. Very mild left-sided flank pain as well. Otherwise reports
recovering well at home. Denies any fevers nausea vomiting any difficulty with urination. Not on blood thinners. VSS labs notable for drop in hgb from 9.7 last hospitalization to 8.6 on ED eval. Denies fever chills nausea vomiting significant abd
pain. Pt otherwise reports feeling well. CT noted post left partial nephrectomy with associate collection 8.4 cm diameter suggestive hematoma.
PLAN:
#new onset Sepsis during hospitalization
#Overnight fever tachycardia lactic acidosis.
Appreciate overnight staff assistance
Start empiric vanc meropenem (PCN and possible cephalosporin allergy). ID eval appreciated vanc dc'd and meropenem switched to Cefipime later further de-escalated to ceftriaxone
Urine Blood cx's pos for E. coli sensitivities appreciated
Ice packs and Tylenol prn fever
Lactic acidosis resolved with IVF bolus
Metformin possibly contributing to lactic acidosis briefly discontinued- since resumed with clinical improvement and resolution lactic acidosis
Transferred to IMU for closer monitoring
#Acute blood loss anemia
#Renal cell carcinoma s/p recent partial Nephrectomy
Tele
received 4 PRBC over the course of hospitalization
monitor H&H
transfusion prn <8 Hgb given concern active bleeding
treated with Franco CBI as per Urology, Franco eventually discontinued with clinical improvement, passed trial of void.
Urology eval appreciated
pain control prn Tylenol oxycodone morphine
hold NSAIDs except for baby asa
CT abd/pelvis angio appreciated No definitive active arterial extravasation of contrast. 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
IR eval appreciated noted on Left renal arteriogram pseudoaneurysm and suspected very small volume active contrast extravasation identified arising from branch vessel off the more superior left renal artery, successful transcatheter coil
embolization performed.
H&H since improved
#Acute Hypoxia
#EKATERINA cpap
#Possible Obesity Hypoventilation syndrome
cont home CPAP
incentive Spirometer
weaned off oxygen supplementation to room air
#Hypomagnesemia
#Hypocalcemia
monitor and replete as necessary
#HTN
cont home lisinopril with holding parameters
#HLD
cont home statin
#obesity
#prediabetes
#Hyperglycemia
Updated A1c 5.7 prediabetes but fingersticks more consistent with diabetes
Metformin resumed
moderate dose sliding scale
carb controlled diet
PT/OT appreciated home services
DVT ppx SCD
Full Code
Stable for downgrade to Tele
discussed with patient and patient's Xiomara
I spent a total of 45 minutes with the patient or on the floor. More than 50% of this time involved counseling and coordination of care.
Anticipated Discharge: 24 - 48 hours
Subjective/Interval History
-
Date of Service: October 24, 2024
Objective Data
-
Labs:
Laboratory Results
10/24/24
05:01
WBC 12.5 H
Hgb 11.1 L
Hct 32.1 L
Plt Count 179
Sodium 135
Potassium 3.9
Chloride 106
Carbon Dioxide 24
BUN 28 H
Creatinine 1.2
Glucose 167 H
Calcium 7.9 L
Vital Signs:
Vital Signs
Temp Pulse Resp BP Pulse Ox
98.1 F 84 17 107/55 96
10/24/24 06:32 10/24/24 04:00 10/24/24 04:00 10/24/24 04:00 10/24/24 04:00
I&O
10/23/24 10/24/24 10/25/24
06:59 06:59 06:59
Intake Total 700 / 700 1240 / 1240
Output Total 1900 / 1900 850 / 850
Balance -1200 / -1200 390 / 390
[2024-10-24] MEDS: FEOSOL 325 MG PO ×2 (08:07→19:33)
[2024-10-24] MEDS: PROTONIX 40 MG PO ×2 (08:08→19:33)
[2024-10-24] MEDS: LOW STRENGTH ASPIRIN 81 MG PO (08:08)
[2024-10-24] MEDS: THERAGRAN 1 TABLET PO (08:08)
[2024-10-24] MEDS: ZESTRIL 10 MG PO (08:08)
[2024-10-24] MEDS: NOVOLOG FLEXPEN-MODERATE RESISTANCE 1 UNITS SC ×2 (08:14→12:09)
[2024-10-24 08:24] LABS: Glucose - Point of Care 187 mg/dl (70-99)
[2024-10-24] MEDS: TYLENOL 1000 MG PO ×2 (09:51→19:33)
--- NOTE | 2024-10-24 11:06 | W.PN.ID1 ---
Date of Service
Date of Service: October 24, 2024
Today's Communication
Continue ceftriaxone.
Assessment / Plan
Complicated UTI with E. coli
E. coli bacteremia
S/p partial left nephrectomy with postop bleeding
. 5/30 s/p coil embolization of pseudoaneurysm
Fever- resolved
Clinical sepsis
Lactic acidosis
Leukocytosis- trending down
Pyuria
Reported PCN allergy.
- No history of cephalosporin allergy
Left renal lesion
HTN
HLD
GERD
DM
Hx CVA
Recommendations:
Continue ceftriaxone.
Monitor white count and temperature curve.
����������������������������������������������������������
Chief Complaint
-: Bacteremia
Subjective / Review of Systems
Feels well.
Vital Signs / Physical Exam
Vital Signs
Vital Signs
Temp Pulse Resp BP Pulse Ox
98.1 F 93 20 103/45 87
10/24/24 06:32 10/24/24 08:08 10/24/24 06:02 10/24/24 08:08 10/24/24 06:02
Physical Exam
Constitutional: No Acute Distress and Comfortable
Pulmonary: Clear
Gastrointestinal: Soft, Non Tender, Non Distended and Normal Bowel Sounds
Extremities: Negative Edema
Neurological: AO x 3
Objective Data
Lab Data
Lab Results
10/24/24 05:01
10/24/24 05:01
PT 14.1 Sec (11.4-14.6) 10/19/24 21:19
INR 1.06 10/19/24 21:19
APTT 33.0 Sec (23.4-35.0) 10/19/24 21:19
Estimated Creat Clear 77 ml/min 10/24/24 05:01
Lactic Acid Cancelled 10/21/24 18:00
Total Bilirubin 0.7 mg/dl (0.2-1.3) 10/19/24 06:29
AST 28 U/L (17-59) 10/19/24 06:29
ALT 27 U/L (0-50) 10/19/24 06:29
Alkaline Phosphatase 91 U/L (38-126) 10/19/24 06:29
Most recent labs reviewed.
Micro Results:
10/21/24 08:33 Urine Culture - Final
Urine Escherichia coli
10/20/24 18:40 Urine Culture - Final
Urine Escherichia coli
10/21/24 05:51 Blood Culture - Final
Blood/Venous Escherichia coli
Gram Stain - Final
10/21/24 05:48 Blood Culture - Final
Blood/Venous Escherichia coli
Gram Stain - Final
10/21/24 08:33 Influenza Types A & B (ELIN) - Final
Nasal Swab Negative for Influenza A & B, NAAT
Negative results must be combined with clinical observations
and patient history.
Nucleic Acid Amplification test (NAAT)performed on the
[employer] platform.
10/19/24 06:29 Urine Culture - Final
Urine Diptheroids
Imaging:
10/19/2024 CT abdomen/pelvis: S/p partial left nephrectomy. At the left lower pole there is mixed attenuation collection measuring up to 8.4 cm which likely represents hematoma. No active contrast extravasation identified. A 5.8 cm increased
attenuation masslike structure within the urinary bladder likely represents blood clot. 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 Please see full dictation for additional detail.
[2024-10-24 11:38] LABS: Glucose - Point of Care 199 mg/dl (70-99)
--- NOTE | 2024-10-24 12:35 | W.PN.URO.CBU ---
Today's Communication / Plan
-
Trend labs and vitals
Increase activity
Continue abx
Likely stable for discharge 10/25 from standpoint
Assessment / Plan
-
69M post op from robotic L partial nephrectomy 10/14
Readmitted for retroperitoneal hematoma and gross hematuria which represents bleeding at operative site, possible pseudoaneurysm formation
Post op bleeding
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
- HGB stable post 3 units transfusion pre embolization
- Okay to increase activity, ambulate, out of bed to chair, PT/OT
Hematuria
- Resolved. Cath flushed with no residual bleeding
- Franco removed 10/23 with no hematuria since and voiding without difficulty
Sepsis
- Clinical sepsis resolved with near resolved leukocytosis
- E coli bacteremia with E coli in urine
- Continue abx course per ID
Likely stable for discharge 10/25 from standpoint
Diagnosis
-
Date of Service: October 24, 2024
-
Patient Diagnosis:
L renal mass
Retroperitoneal bleed
Hematuria
Sepsis with E coli Bacteremia
Urinary retention
Post Op s/p L partial nephrectomy 10/14
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
Subjective
-
Feeling well
voiding without difficulty after catheter removal
Objective
-
Vital Signs
Temp Pulse Resp BP Pulse Ox
99.1 F 89 18 107/59 93
10/24/24 11:38 10/24/24 12:11 10/24/24 12:11 10/24/24 09:58 10/24/24 12:11
Intake and Output
10/23/24 10/24/24 10/25/24
06:59 06:59 06:59
Intake Total 700 / 700 1240 / 1240 220 / 220
Output Total 1900 / 1900 850 / 850 200 / 200
Balance -1200 / -1200 390 / 390 20 / 20
Intake:
Oral fluids 1240 / 1240 220 / 220
IV piggybacks 200 / 200
Blood Product Amount Infused ( 500 / 500
mL)
Packed Rbc Leukoreduced Unit 250 / 250
[id number]
Packed Rbc Leukoreduced Unit 250 / 250
[id number]
Output:
Urine, Franco 1700 / 1700 500 / 500
Urine, Voided 350 / 350 200 / 200
True Urine Output from CBI 200 / 200
Other:
Number of approximated MODERATE 1
amounts of urine
Laboratory Results
10/24/24 05:01
10/24/24 05:01
Physical Exam
-
General - well developed, well nourished, no acute distress
Chest - clear
Abdomen - soft, non-tender, positive bowel sounds, no CVAT, no incisional pain or distention
Neuro - AOx3, no motor deficits
Incision - clean, dry
[2024-10-24] MEDS: STERILE WATER FOR INJECTION 20 ML IV (13:51)
[2024-10-24] MEDS: ROCEPHIN 2000 MG IV (13:52)
[2024-10-24 16:29] LABS: Glucose - Point of Care 219 mg/dl (70-99)
[2024-10-24] MEDS: NOVOLOG FLEXPEN-MODERATE RESISTANCE 3 UNITS SC (17:20)
[2024-10-24] MEDS: LIPITOR 40 MG PO (17:33)
[2024-10-24] MEDS: GLUCOPHAGE XR EXTENDED RELEASE 500 MG PO (17:35)
[2024-10-24] MEDS: PEPCID 20 MG PO (17:35)
--- NOTE | 2024-10-24 17:36 | PTCARENOTE ---
pt ambulated to [facility] and sat in the chair for 1-2 hours. heart rate elevated to 108 bpm while ambulating, returning to 90's after sitting for 20 seconds. voiding clear diane urine today without clots. vital signs stable.
[2024-10-24] MEDS: ELAVIL 50 MG PO (21:42)
[2024-10-24 21:50] LABS: Glucose - Point of Care 168 mg/dl (70-99)
--- NOTE | 2024-10-24 21:56 | PTCARENOTE ---
Report received from previous shift RN [id number]. Pt in bed with spouse visiting at bedside. Pt is AAO3, no complaints offered. Telemetry rhythm reveals SR w oc PVCs, HR 80-90's. Trace ankle edema noted with palpable peripheral pulses present. Knee high
SCDs placed per order. Shallow respirations, oc nonproductive cough reported, pox 94% on room air, lung sounds are decreased throughout. IS at bedside and encouraged. HypoBS, abdomen round/obese. Pt reports no bowel movement today but states he had
bm yesterday, denies constipation. Reports poor appetite, tolerating regular diet. Urinal at bedside, pt voiding dark diane urine. Skin as documented. L FA and L w int's capped.
Pt with pending transfer orders. Report given to receiving unit RN. Pt and pt's family aware of transfer to room 320. All belongings packed and to be sent w pt.
--- NOTE | 2024-10-24 22:30 | PTCARENOTE ---
Pt transferred from IMU to 3W via wheelchair. Pt 1 assist from wheelchair to bed. AAOX3, oriented to room, vital signs stable. Call dawn within reach, pleasant and cooperative.
[2024-10-25 03:00] VITALS: BP 143/63
[2024-10-25 06:31] LABS: Hematocrit 29.2 % (39.0-52.0); Hemoglobin 10.1 g/dL (13.0-18.0); Mean Corp Hgb Conc. 34.6 g/dL (33.0-37.0); Mean Corpuscular Hgb 30.3 pg (27.0-31.0); Mean Corpuscular Volume 87.7 fL (80.0-94.0); Mean Platelet Volume 9.5 fL (7.4-10.4); Platelet Count 179 10^3/uL (130-400); Red Blood Cell Count 3.33 10^6/uL (4.70-6.10); Red Cell Dist. Width 14.3 % (11.5-14.5); White Blood Cell Count 11.9 10^3/uL (4.8-10.8)
[2024-10-25 07:08] LABS: Blood Urea Nitrogen 24 mg/dl (9-20); Calcium 7.6 mg/dl (8.4-10.2); Carbon Dioxide 24 mmol/L (22-30); Chloride 107 mmol/L (98-107); Estimated Creatinine Clearance 84 ml/min; Glucose 177 mg/dl (70-99); Phosphorus 2.3 mg/dl (2.5-4.5); Potassium 3.8 mmol/L (3.5-5.1); Sodium 134 mmol/L (135-145); eGFR > 60.00
[2024-10-25 07:49] VITALS: BP 124/67
[2024-10-25 08:06] LABS: Magnesium 2.1 mg/dl (1.6-2.3)
[2024-10-25] MEDS: LOW STRENGTH ASPIRIN 81 MG PO (08:10)
[2024-10-25] MEDS: THERAGRAN 1 TABLET PO (08:10)
[2024-10-25] MEDS: GLUCOPHAGE XR EXTENDED RELEASE 500 MG PO (08:10)
[2024-10-25] MEDS: FEOSOL 325 MG PO (08:10)
[2024-10-25] MEDS: ZESTRIL 10 MG PO (08:10)
[2024-10-25] MEDS: PROTONIX 40 MG PO (08:11)
[2024-10-25 08:17] LABS: Glucose - Point of Care 165 mg/dl (70-99)
[2024-10-25] MEDS: NOVOLOG FLEXPEN-MODERATE RESISTANCE 1 UNITS SC ×2 (08:17→12:24)
[2024-10-25 11:45] VITALS: BP 137/64
--- NOTE | 2024-10-25 12:03 | W.PN.URO.CBU ---
Today's Communication / Plan
-
Stable for discharge from standpoint
Continue outpatient antibiotic course per ID recs
Follow up in 7-14 days as already scheduled
Assessment / Plan
-
69M post op from robotic L partial nephrectomy 10/14
Readmitted for retroperitoneal hematoma and gross hematuria which represents bleeding at operative site, possible pseudoaneurysm formation
Post op bleeding
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
- HGB stable post 3 units transfusion pre embolization
- Okay to increase activity, ambulate, out of bed to chair, PT/OT
Hematuria
- Resolved. Cath flushed with no residual bleeding
- Franco removed 10/23 with no hematuria since and voiding without difficulty
Sepsis
- Clinical sepsis resolved with near resolved leukocytosis
- E coli bacteremia with E coli in urine
- Continue abx course per ID
Stable for discharge from standpoint
Diagnosis
-
Date of Service: October 25, 2024
-
Patient Diagnosis:
L renal mass
Retroperitoneal bleed
Hematuria
Sepsis with E coli Bacteremia
Urinary retention
Post Op s/p L partial nephrectomy 10/14
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
Subjective
-
Feeling well
No acute events
Objective
-
Vital Signs
Temp Pulse Resp BP Pulse Ox
98.3 F 95 18 124/67 99
10/25/24 07:49 10/25/24 07:49 10/25/24 07:49 10/25/24 07:49 10/25/24 07:49
Intake and Output
10/24/24 10/25/24 10/26/24
06:59 06:59 06:59
Intake Total 1240 / 1240 700 / 700
Output Total 850 / 850 1025 / 1025
Balance 390 / 390 -325 / -325
Intake:
Oral fluids 1240 / 1240 /
Output:
Urine, Franco 500 / 500
Urine, Voided 350 / 350 1025 / 1025
Other:
Number of approximated MODERATE 1 1
amounts of urine
Laboratory Results
10/25/24 05:58
10/25/24 05:58
Physical Exam
-
General - well developed, well nourished, no acute distress
Chest - clear bilaterally
Abdomen - soft, non-tender, positive bowel sounds, no CVAT, no incisional pain or distention
[2024-10-25 12:14] LABS: Glucose - Point of Care 160 mg/dl (70-99)
--- NOTE | 2024-10-25 12:54 | W.PN.HOSP.TC ---
Addendum entered and electronically signed by Enrique Thomas MD 10/25/24 15:46:
[id number]
#Hyponatremia
-mild
Original Note:
Today's Communication/Plan
-
DC on antibiotics
F/u and PCP outpt
f/u cbc and bmp in 1 week, monitoring WBC and renal function
Assessment / Plan
Assessment / Plan
Physical Exam
General: pallor improved/resolved. No cyanosis or jaundice. Obese
HEENT: Throat clear. PERRLA Normocephalic atraumatic
NECK: Supple. No JVD Carotid Bruits
RESPIRATORY: Lungs clear to auscultation. No crackles wheezes stridor
CVS: S1, S2 normal. RRR. No murmur, rub or gallop.
ABDOMEN: Soft, mild left-sided tenderness healing laparoscopic surgical wound sites. No distension. BS+/normal.
EXTREMITIES: No peripheral cyanosis or edema.
GIS APPLICATION DEVELOPER: AOx3 conversant coherent
IMPRESSION:
69M Obesity prediabetes HTN HLD GERD history of renal cell carcinoma status post partial nephrectomy 5 days ago presenting with concerns of hematuria starting morning upon awakening. Very mild left-sided flank pain as well. Otherwise reports
recovering well at home. Denies any fevers nausea vomiting any difficulty with urination. Not on blood thinners. VSS labs notable for drop in hgb from 9.7 last hospitalization to 8.6 on ED eval. Denies fever chills nausea vomiting significant abd
pain. Pt otherwise reports feeling well. CT noted post left partial nephrectomy with associate collection 8.4 cm diameter suggestive hematoma.
PLAN:
#new onset Sepsis during hospitalization
#Bacteremia
#UTI
-Ecoli
-Ceftriaxone
-DC with abx
-ID following
#Acute blood loss anemia
#Renal cell carcinoma s/p recent partial Nephrectomy
Tele
received 4 PRBC over the course of hospitalization
monitor H&H
transfusion prn <8 Hgb given concern active bleeding
treated with Franco CBI as per Urology, Franco eventually discontinued with clinical improvement, passed trial of void.
Urology eval appreciated
pain control prn Tylenol oxycodone morphine
hold NSAIDs except for baby asa
CT abd/pelvis angio appreciated No definitive active arterial extravasation of contrast. 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
IR eval appreciated noted on Left renal arteriogram pseudoaneurysm and suspected very small volume active contrast extravasation identified arising from branch vessel off the more superior left renal artery, successful transcatheter coil
embolization performed.
H&H since improved
#Acute Hypoxia
#EKATERINA cpap
#Possible Obesity Hypoventilation syndrome
cont home CPAP
incentive Spirometer
weaned off oxygen supplementation to room air
#Hypomagnesemia
#Hypocalcemia
monitor and replete as necessary
#HTN
cont home lisinopril with holding parameters
#HLD
cont home statin
#obesity
#prediabetes
#Hyperglycemia
Updated A1c 5.7 prediabetes but fingersticks more consistent with diabetes
Metformin resumed
moderate dose sliding scale
carb controlled diet
PT/OT appreciated home services
DVT ppx SCD
Full Code
More than 30 minutes spent in discharge including
Final examination of the patient
Summarizing hospital stay
Instructions for continuing care to all relevant caregivers
Preparation of discharge records, prescriptions, and referral forms
Total time spent (in minutes): 36
Anticipated Discharge: Today
Subjective/Interval History
-
Date of Service: October 25, 2024
no acute events overnight, feels well
Objective Data
-
Labs:
Laboratory Results
10/25/24
05:58
WBC 11.9 H
Hgb 10.1 L
Hct 29.2 L
Plt Count 179
Sodium 134 L
Potassium 3.8
Chloride 107
Carbon Dioxide 24
BUN 24 H
Creatinine 1.1
Glucose 177 H
Calcium 7.6 L
Vital Signs:
Vital Signs
Temp Pulse Resp BP Pulse Ox
99.6 F 91 18 137/64 97
10/25/24 11:45 10/25/24 11:45 10/25/24 11:45 10/25/24 11:45 10/25/24 11:45
I&O
10/24/24 10/25/24 10/26/24
06:59 06:59 06:59
Intake Total 1240 / 1240 700 / 700
Output Total 850 / 850 1025 / 1025
Balance 390 / 390 -325 / -325
Review of Systems
-
History Source: Patient
All other systems: Not reviewed unless documented
Data Reviewed
-
CT Scan: Report Reviewed by me
Ultrasound: Report Reviewed by me
Labs: Labs Reviewed by me
[2024-10-25] MEDS: ROCEPHIN 2000 MG IV (13:11)
[2024-10-25] MEDS: STERILE WATER FOR INJECTION 20 ML IV (13:12)
--- NOTE | 2024-10-25 14:02 | W.PN.ID1 ---
Date of Service
Date of Service: October 25, 2024
Today's Communication
Continue antibiotics. See below...
Assessment / Plan
Complicated UTI with E. coli
E. coli bacteremia
S/p partial left nephrectomy with postop bleeding
. 10/22 s/p coil embolization of pseudoaneurysm
Fever- resolved
Clinical sepsis
Lactic acidosis
Leukocytosis- trending down
Pyuria
Reported PCN allergy.
- No history of cephalosporin allergy
Left renal lesion
HTN
HLD
GERD
DM
Hx CVA
Recommendations:
Continue ceftriaxone. At D/C can transition to cefdinir 300 mg PO BID, to continue through 11/08/24
Monitor white count and temperature curve.
����������������������������������������������������������
Chief Complaint
-: Bacteremia
Subjective / Review of Systems
Review of Systems: No Fever, No Chills and No Abdominal Pain
Vital Signs / Physical Exam
Vital Signs
Vital Signs
Temp Pulse Resp BP Pulse Ox
99.6 F 91 18 137/64 97
10/25/24 11:45 10/25/24 11:45 10/25/24 11:45 10/25/24 11:45 10/25/24 11:45
Physical Exam
Constitutional: No Acute Distress, Comfortable and Non-toxic
Eyes: Sclera Anicteric
Cardiovascular: S1/S2; Negative S3/S4
Pulmonary: Clear and Non Labored
Gastrointestinal: Soft, Non Tender, Non Distended and Normal Bowel Sounds
Extremities: Negative Edema
Neurological: AO x 3
Psychological: Calm
Objective Data
Lab Data
Lab Results
10/25/24 05:58
10/25/24 05:58
PT 14.1 Sec (11.4-14.6) 10/19/24 21:19
INR 1.06 10/19/24 21:19
APTT 33.0 Sec (23.4-35.0) 10/19/24 21:19
Estimated Creat Clear 84 ml/min 10/25/24 05:58
Lactic Acid Cancelled 10/21/24 18:00
Total Bilirubin 0.7 mg/dl (0.2-1.3) 10/19/24 06:29
AST 28 U/L (17-59) 10/19/24 06:29
ALT 27 U/L (0-50) 10/19/24 06:29
Alkaline Phosphatase 91 U/L (38-126) 10/19/24 06:29
Most recent labs reviewed.
Micro Results:
10/21/24 08:33 Urine Culture - Final
Urine Escherichia coli
10/20/24 18:40 Urine Culture - Final
Urine Escherichia coli
10/21/24 05:51 Blood Culture - Final
Blood/Venous Escherichia coli
Gram Stain - Final
10/21/24 05:48 Blood Culture - Final
Blood/Venous Escherichia coli
Gram Stain - Final
10/21/24 08:33 Influenza Types A & B (ELIN) - Final
Nasal Swab Negative for Influenza A & B, NAAT
Negative results must be combined with clinical observations
and patient history.
Nucleic Acid Amplification test (NAAT)performed on the
[employer] platform.
10/19/24 06:29 Urine Culture - Final
Urine Diptheroids
Imaging:
10/19/2024 CT abdomen/pelvis: S/p partial left nephrectomy. At the left lower pole there is mixed attenuation collection measuring up to 8.4 cm which likely represents hematoma. No active contrast extravasation identified. A 5.8 cm increased
attenuation masslike structure within the urinary bladder likely represents blood clot. 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 Please see full dictation for additional detail.
Care Review
Plan reviewed with: Physician (Hospitalist)
--- NOTE | 2024-10-25 14:06 | CM ---
Patient seen at bedside
IMM explained & signed. In chart
PT rec home health
patient declines
PLAN: Home, declines home health
to transport
[2024-10-25 15:18] VITALS: BP 119/66
--- NOTE | 2024-10-25 15:42 | W.DS.TRANS ---
DC Summary - Personal Coach
-
Discharge Instructions:
Discharge Diagnosis/Procedures 69M post op from robotic L partial nephrectomy 5
Post op bleeding
Sepsis
Bacteremia
Diet Low Cholesterol,Low Fat
Activity As tolerated
Blood Work cbc and bmp in 1 week with pcp
Instructions:
Stand-Alone Forms:
Changes to Home Medications: Yes
Discharge Medications:
DC Medications w/original date entered in [id number]
multivitamin with folic acid 400 mcg tablet (Tab-A-Elizabeth) 1 tab PO DAILY Supplement 01/21/17
aspirin 81 mg chewable tablet 81 mg PO DAILY 01/23/17
lisinopril 10 mg tablet 10 mg PO DAILY #30 tabs 01/23/17
metformin 500 mg tablet,extended release 24 hr 1,000 mg (2 x 500 mg) PO QPM #30 tabs 01/23/17
amitriptyline 10 mg tablet 50 mg PO HS Neurological Condition 09/05/22
famotidine 20 mg tablet 20 mg PO QPM Gastrointestinal Issue 10/12/24
pantoprazole 40 mg tablet,delayed release 40 mg PO BID Gastrointestinal Issue 10/12/24
semaglutide 0.25 mg or 0.5 mg (2 mg/3 mL) subcutaneous pen injector (Ozempic) 0.5 mg SC BAXTER Diabetes 10/12/24
ferrous sulfate 325 mg (65 mg iron) tablet 325 mg PO BID Supplement 10/14/24
acetaminophen 500 mg tablet (Tylenol Extra Strength) 1,000 mg PO Q6HPRN PRN MILD PAIN 10/19/24
atorvastatin 40 mg tablet (Lipitor) 40 mg PO QPM High Cholesterol 10/19/24
metformin 500 mg tablet,extended release 24 hr 500 mg PO DAILY Diabetes 10/19/24
oxycodone-acetaminophen 5 mg-325 mg tablet 1 tab PO Q6HPRN PRN moderate pain 10/19/24
polyethylene glycol 3350 17 gram oral powder packet (Miralax) 17 g PO DAILYPRN PRN CONSTIAPTION 10/19/24
cefdinir 300 mg capsule 300 mg PO Q12H 15 days #30 caps 10/25/24
Home Medication Changes
cefdinir 300 mg capsule 300 mg PO Q12H 15 days #30 caps 10/25/24
Pending Results: No
== END 2024-10-25 16:47 | disposition home or self-care (01) | DRG 907 ==
LOC: 3 WEST ACU 15:06
PROVIDERS: Nurse Practitioner Family; Physician Assistant; Radiology Vascular & Interventional Radiology; ADMITTING PHYSICIAN Internal Medicine; ATTENDING PHYSICIAN Internal Medicine; CONSULT PHYSICIAN Internal Medicine Infectious Disease; CONSULT PHYSICIAN Urology; EMERGENCY PHYSICIAN Emergency Medicine; FAMILY PHYSICIAN Family Medicine
PROC: 30233N1 Transfusion of Nonautologous Red Blood Cells into Peripheral Vein, Percutaneous Approach (ICD-10-PCS; 2024-10-19)
PROC: 04VA3DZ Restriction of Left Renal Artery with Intraluminal Device, Percutaneous Approach (ICD-10-PCS; 2024-10-22)
PROC: B4171ZZ Fluoroscopy of Left Renal Artery using Low Osmolar Contrast (ICD-10-PCS; 2024-10-22)
DX: N99.820 Postprocedural hemorrhage of a genitourinary system organ or structure following a genitourinary system procedure (principal); A41.51 Sepsis due to Escherichia coli [E. coli]; K68.3 Retroperitoneal hematoma; D62 Acute posthemorrhagic anemia; E87.1 Hypo-osmolality and hyponatremia; E66.2 Morbid (severe) obesity with alveolar hypoventilation; E87.20 Acidosis, unspecified; N39.0 Urinary tract infection, site not specified; Y83.6 Removal of other organ (partial) (total) as the cause of abnormal reaction of the patient, or of later complication, without mention of misadventure at the time of the procedure; Z90.5 Acquired absence of kidney; E78.5 Hyperlipidemia, unspecified; K21.9 Gastro-esophageal reflux disease without esophagitis; Z85.528 Personal history of other malignant neoplasm of kidney; R09.02 Hypoxemia; I10 Essential (primary) hypertension; E11.65 Type 2 diabetes mellitus with hyperglycemia; Z79.84 Long term (current) use of oral hypoglycemic drugs; Z86.73 Personal history of transient ischemic attack (TIA), and cerebral infarction without residual deficits; Z88.0 Allergy status to penicillin; Z79.82 Long term (current) use of aspirin; Z88.1 Allergy status to other antibiotic agents; Z11.52 Encounter for screening for COVID-19
CPT/HCPCS: 36253; 37244; 51702; 51798; 74174; 74177; 75726; 76937; 80048; 80053; 81003; 81015; 82306; 82607; 82728; 82746; 82962; 83540; 83550; 83605; 83735; 84100; 84484; 85014; 85018; 85025; 85027; 85610; 85730; 86850; 86900; 86901; 86920; 87040; 87077; 87086; 87088; 87154; 87186; 87205; 87502; 87811; 93005; 96374; 97162; 97166; 99152; 99153; 99285; C1769; C1887; J2185; P9016; Q9967

== ENCOUNTER 2024-12-16 14:48 | Inpatient (IN) | payer MEDICARE, BC, SELFPAY ==
[2024-12-16] VITALS (24 sets, daily range): BP systolic 94–172; BP diastolic 37–73; BMI 38.3; BMI 37.2; BMI 38.2
--- NOTE | 2024-12-16 11:34 | ED.GENMED ---
History of Present Illness
General
Chief Complaint: Urinary Symptoms
Source: patient
Time Seen by Provider: 12/16/24 11:09
History of Present Illness
History of Present Illness:
This patient is a 69-year-old male who had a partial nephrectomy in late September of this year. This was complicated by a hematoma, and he also developed E. coli urosepsis. He recovered from that, but states since discharge on October 25 he has had 2
recurrent UTIs for which he has been prescribed antibiotics. He cannot remember the last time that he was on antibiotics but it was at least more than a week ago. On Friday he started to notice discomfort with urination described as very 'slight
pressure', and not consistent. He denies urgency, frequency, flank pain, fever, dyspnea, chest pain, abdominal pain. He does note that he has a rash in the groin area and he was prescribed a cream for that by his doctor on Friday. He also had a
urine sample sent on Friday, but does not yet know the results. He is not currently taking oral antibiotics.He also notes intermittent episodes of shaking chills without associated diaphoresis or documented fever.
Past History
Past History
ED Past Medical History: HTN, Hypercholesterolemia, NIDDM and Other (EKATERINA)
ED Past Surgical History: Appendectomy, Cholecystectomy and Urological
Social History
Tobacco: Non-smoker
Alcohol: Occasional
Drug: None
Personal:
Living: with family
Employment: Employed
Sepsis
Sepsis Screening
Sepsis Assessment: Sepsis
Sepsis Screen
Sepsis Screen: Sepsis
Date: 12/16/24
Time: 13:32
Course
Orders/Labs/Results
Orders:
Orders
12/16/24 12:01
Complete Blood Count/With Diff Urgent
Comprehensive Metabolic Panel Urgent
Lactic Acid Q4H
Comment: CANCEL 2nd LACTIC ACID IF 1st LACTIC ACID IS LESS THAN 2
Urinalysis Reflex To Culture Urgent
Date Specimen was Collected: 12/16/24
Time Specimen was Collected: 11:50
Urine Microscopic Reflex Cult Urgent
Blood Culture Q30M
LEONILA Source: Blood/Venous
Specimen Description:
Blood Culture Q30M
LEONILA Source: Blood/Venous
Specimen Description:
Urine Culture Urgent
LEONILA Source: U
Specimen Description:
Date Specimen was Collected: 12/16/24
Time Specimen was Collected: 11:50
12/16/24 12:50
0.9% Sodium Chloride 1000 ml [Nss] 2,000 ml IV BOLUS
12/16/24 13:12
Cardiac Monitoring- Treatment ONCE
CefTRIAXone [Rocephin] 1,000 mg IV NOW STA
12/16/24 13:31
NSS 250mL Bolus over 30 minutes 0.9% Sodium Chloride 250 ml [Nss] 250 ml IV BOLUS
12/16/24 15:30
Lactic Acid Q4H
Comment: CANCEL 2nd LACTIC ACID IF 1st LACTIC ACID IS LESS THAN 2
Abnormal Lab Results
12/16/24
12:01
WBC 17.1 H 10^3/uL
(4.8-10.8)
RBC 3.05 L 10^6/uL
(4.70-6.10)
Hgb 9.3 L g/dL
(13.0-18.0)
Hct 27.7 L %
(39.0-52.0)
Abs Immat Gran (auto) 0.1 H 10^3/uL
(0-0.05)
Absolute Neuts (auto) 15.5 H 10^3/uL
(1.4-6.5)
Absolute Lymphs (auto) 0.5 L 10^3/uL
(1.2-3.4)
Absolute Monos (auto) 0.9 H 10^3/uL
(0.1-0.6)
Immature Gran % 0.6 H %
(0-0.5)
Neutrophils % 90.7 H %
(42.2-75.2)
Lymphocytes % 3.0 L %
(20.5-51.1)
BUN 24 H mg/dl
(9-20)
Glucose 186 H mg/dl
(70-99)
Ur Occult Blood Reflex 2+ A
(Negative)
Urine Nitrite (Reflex) Positive A
(Negative)
Leukocyte Esterase Rfl 3+ A
(Negative)
Urine WBC (Reflex) >100 A /HPF
(0-5)
Urine Bacteria (Reflex) Many A
(Negative)
Urine Albumin (Reflex) 2+ A
(Neg - Trace)
12/16/24 12:01
12/16/24 12:01
Vital Signs
Initial and Last Documented VS:
Initial Vital Signs
Temp Pulse Resp BP Pulse Ox
99.6 F 107 16 172/73 98
12/16/24 10:40 12/16/24 10:40 12/16/24 10:40 12/16/24 10:40 12/16/24 10:40
Last Documented Vital Signs
Temp Pulse Resp BP Pulse Ox
99.6 F 104 20 128/60 99
12/16/24 10:40 12/16/24 10:41 12/16/24 10:41 12/16/24 10:41 12/16/24 11:36
*Pulse Oximetry
SaO2: 99
Oxygen Mode of Delivery: Room air
Update Note
Update Note:
Patient presents to the Emergency Department with ___shaking chills and mild dysuria
Number and Complexity of Problems Addressed at the Encounter
� Chronic conditions affecting care:
� Acute Exacerbation and/or Progression of Chronic Illness:
� Differential Diagnosis includes:but not limited to sepsis, uti, pyelonephritis, bacteremia, etc etc
Amount and/or Complexity of Data to be Reviewed and Analyzed
� I performed an independent evaluation of and my interpretation is:
EKG:
CT:
Xrays:
Laboratory Studies: Count elevation, prerenal azotemia, mild hyperglycemia, urine consistent with infection
Other:
� Review of other/old records reveals: admitted early October with e coli urosepsis.
� Clinical information was obtained by an independent historian:
� Prescriptions/Medications Considered but not given:
� Further testing considered but not performed:
Risk of Complications and/or Morbidity or Mortality of Patient Management
� Social determinants of health affecting care:
� Discussion with other providers (PCP, Hospitalists, Consultants, etc):
� Escalation of care including admission/observation vs risk of discharge considered: Clinical picture very consistent with urosepsis, BP stable, IV fluids and antibiotics ordered. Patient's prior urine culture consistent with
E. coli that was sensitive to Rocephin which was ordered here. Patient and updated regarding plan. [place] text to hospitalist
ED Attending Note
-
Portions of this chart may have been created with voice recognition software.� Occasional wrong word or��sound alike� substitutions may have occurred due to the inherent limitations of voice recognition software.
Discharge Plan
Departure
Patient Disposition: Admit
Date of Disposition: 12/16/24
Time of Disposition: 13:33
Presentation/result/management discussed w/ accepting MD/DO: Hospitalist
Condition: Fair
Discharge Problem:
urosepsis
Prescriptions:
No Action
multivitamin with folic acid [Tab-A-Elizabeth] 1 TABLET tablet
1 tab PO DAILY
lisinopril 10 MG tablet
10 mg PO DAILY Qty: 30 0RF
aspirin 81 MG tablet,chewable
81 mg PO DAILY 0RF
metformin 500 MG tablet extended release 24 hr
1,000 mg PO QPM Qty: 30 0RF
amitriptyline 10 mg Tablet
50 mg PO HS
famotidine 20 mg Tablet
20 mg PO QPM
pantoprazole 40 mg Tablet,Delayed Release (Dr/Ec)
40 mg PO BID
Ozempic 0.25 mg or 0.5 mg (2 mg/3 mL) Pen Injector
0.5 mg SC BAXTER
ferrous sulfate 325 mg (65 mg iron) Tablet
325 mg PO BID
atorvastatin [Lipitor] 40 mg Tablet
40 mg PO QPM
polyethylene glycol 3350 [Miralax] 17 gram Powder In Packet
17 g PO DAILYPRN PRN (Reason: CONSTIAPTION)
acetaminophen [Tylenol Extra Strength] 500 mg Tablet
1,000 mg PO Q6HPRN PRN (Reason: MILD PAIN)
metformin 500 mg Tablet Extended Release 24 Hr
500 mg PO DAILY
oxycodone-acetaminophen 5-325 mg tablet
1 tab PO Q6HPRN PRN (Reason: moderate pain)
cefdinir 300 mg capsule
300 mg PO Q12H 15 Days Qty: 30 0RF
Referrals:
Tanner Matos DO [Family Provider, Family Practice]
Interventions
Interventions:
*Risk Screen - Suicide Last Done: 12/16/24 10:40
*General Assessment Last Done: 12/16/24 12:31
*Neglect/Abuse Screening Last Done: 12/16/24 10:40
*ED- Fall Risk Assessment Last Done: 12/16/24 12:31
*ED COVID-19 Vaccine History Last Done: 12/16/24 12:31
ED-Male Genitourinary Assessment Last Done: 12/16/24 12:31
Discharge Date and Time
Print Language: NORWEGIAN
[2024-12-16 12:30] LABS: Hematocrit 27.7 % (39.0-52.0); Hemoglobin 9.3 g/dL (13.0-18.0); Mean Corp Hgb Conc. 33.6 g/dL (33.0-37.0); Mean Corpuscular Volume 90.8 fL (80.0-94.0); Nucleated Red Blood Cells % 0 % (-); Platelet Count 233 10^3/uL (130-400); Red Cell Dist. Width 14.3 % (11.5-14.5)
[2024-12-16 12:47] LABS: ALT (SGPT) 20 U/L (0-50); AST (SGOT) 26 U/L (17-59); Albumin 4.0 g/dl (3.5-5.0); Alkaline Phosphatase 109 U/L (38-126); Blood Urea Nitrogen 24 mg/dl (9-20); Calcium 8.5 mg/dl (8.4-10.2); Carbon Dioxide 25 mmol/L (22-30); Chloride 105 mmol/L (98-107); Glucose 186 mg/dl (70-99); Potassium 4.4 mmol/L (3.5-5.1); Sodium 138 mmol/L (135-145); Total Protein 6.7 g/dl (6.3-8.2); eGFR > 60.00
[2024-12-16 13:06] LABS: Urine Character Cloudy (Clear)
[2024-12-16] MEDS: NSS 2000 IV (13:13)
[2024-12-16 13:17] LABS: Urine Red Blood Cell 0-2 /HPF (0-2); Urine Squamous Cell 0-2 /LPF (Few)
[2024-12-16 13:18] LABS: Urine White Cell >100 /HPF (0-5)
[2024-12-16] MEDS: ROCEPHIN 1000 MG IV (13:22)
[2024-12-16] MEDS: NSS 250 IV (13:59)
--- NOTE | 2024-12-16 14:02 | HPS.HSE ---
Family Physician
-
Family Physician: Tanner Matos
Chief Complaint
-
cloudy urine
History of Present Illness
69-year-old male past medical history of renal cell carcinoma status post left partial nephrectomy complicated by hematoma, prior E. coli bacteremia, obstructive sleep apnea, possible obesity hypoventilation, hypertension, hyperlipidemia, obesity,
prediabetes, GERD, CVA, presenting with urinary symptoms. He noticed some cloudy urine but denies any urinary symptoms. He denies urinary urgency, frequency or flank pain or fever or shortness of breath or chest pain or abdominal pain. He has
intermittent chills without fever.
He noticed a rash in the groin area and was prescribed cream by his doctor on Friday. Rash is improving.
Patient was recently admitted from 10/19 to 10/25 for hematuria and left-sided flank pain after nephrectomy 5 days prior. Patient was anemic and CT scan showed hematoma. Patient received blood transfusions and underwent IR left renal arteriogram
showed pseudoaneurysm status post embolization. Patient subsequently had urosepsis with E. coli bacteremia treated with ceftriaxone. Since discharge he has had 2 urinary tract infection treated with antibiotics.
He does not smoke or drink alcohol.
Medical History
Past Medical History
Past Medical History: Reports Other (renal cell carcinoma status post left partial nephrectomy complicated by hematoma, prior E. coli bacteremia, obstructive sleep apnea, possible obesity hypoventilation, hypertension, hyperlipidemia, obesity,
prediabetes, GERD, CVA)
Past Surgical History: Reports None
Social History
Tobacco: Non-smoker
Alcohol: None
Drug: None
Family History
Family History: Not pertinent
Allergies / Home Medications
Allergies reflects when Allergies were last updated in [facility].
Home Medications with original date entered in [facility]
Allergy/Medication List:
Allergies
Allergy/AdvReac Type Severity Reaction Status Date / Time
penicillin G Allergy Swelling Verified 10/19/24 17:15
Penicillins Allergy Swelling Verified 10/19/24 17:15
Home Medications
multivitamin with folic acid 400 mcg tablet (Tab-A-Elizabeth) 1 tab PO DAILY Supplement 01/21/17
aspirin 81 mg chewable tablet 81 mg PO DAILY 01/23/17
lisinopril 10 mg tablet 10 mg PO DAILY #30 tabs 01/23/17
metformin 500 mg tablet,extended release 24 hr 1,000 mg (2 x 500 mg) PO QPM #30 tabs 01/23/17
amitriptyline 10 mg tablet 50 mg PO HS Neurological Condition 09/05/22
famotidine 20 mg tablet 20 mg PO QPM Gastrointestinal Issue 10/12/24
pantoprazole 40 mg tablet,delayed release 40 mg PO BID Gastrointestinal Issue 10/12/24
semaglutide 0.25 mg or 0.5 mg (2 mg/3 mL) subcutaneous pen injector (Ozempic) 0.5 mg SC BAXTER Diabetes 10/12/24
ferrous sulfate 325 mg (65 mg iron) tablet 325 mg PO BID Supplement 10/14/24
acetaminophen 500 mg tablet (Tylenol Extra Strength) 1,000 mg PO Q6HPRN PRN MILD PAIN 10/19/24
atorvastatin 40 mg tablet (Lipitor) 40 mg PO QPM High Cholesterol 10/19/24
metformin 500 mg tablet,extended release 24 hr 500 mg PO DAILY Diabetes 10/19/24
oxycodone-acetaminophen 5 mg-325 mg tablet 1 tab PO Q6HPRN PRN moderate pain 10/19/24
polyethylene glycol 3350 17 gram oral powder packet (Miralax) 17 g PO DAILYPRN PRN CONSTIAPTION 10/19/24
cefdinir 300 mg capsule 300 mg PO Q12H 15 days #30 caps 10/25/24
Review of Systems
-
History Source: Patient
A 12 point ROS was completed and negative except as noted: Yes
Constitutional: Reports No Symptoms
EENT: Reports No Symptoms
Respiratory: Reports No Symptoms
Cardiac: Reports No Symptoms
Abdomen/GI: Reports No Symptoms
: Reports No Symptoms
Musculoskeletal: Reports No Symptoms
Skin: Reports No Symptoms
Neurological: Reports No Symptoms
Endocrine: Reports No Symptoms
Hematologic/Lymphatic: Reports No Symptoms
Psych: Reports No Symptoms
Physical Exam
Vital Signs
Vital Signs
Temp Pulse Resp BP Pulse Ox
99.4 F 104 25 128/52 91
12/16/24 12:00 12/16/24 13:50 12/16/24 13:50 12/16/24 13:50 12/16/24 13:50
Physical Exam
General: Well Developed, Well Nourished and No Apparent Distress
HEENT: NormoCephalic, Moist mucous membranes and Atraumatic
Respiratory: Clear
Cardiac: S1/S2 and Regular Rhythm; No Murmur or Rub
GI: Soft, Non Tender, Non Distended and Normal Bowel Sounds; No Organomegaly
Rectal: Deferred by Provider
Musculoskeletal: No Clubbing, No Cyanosis and No Edema
Skin: No Rash
Neuro: Nonfocal/grossly intact
Laboratory Results
-
12/16/24 12:01
12/16/24 12:01
Laboratory Results
Lactic Acid 1.9 mmol/L (0.7-2.0) 12/16/24 12:01
Total Bilirubin 0.5 mg/dl (0.2-1.3) 12/16/24 12:01
AST 26 U/L (17-59) 12/16/24 12:01
ALT 20 U/L (0-50) 12/16/24 12:01
Alkaline Phosphatase 109 U/L (38-126) 12/16/24 12:01
Impression/Plan
-
IMPRESSION:
PLAN:
# Recurrent UTI
# Prior E. coli bacteremia secondary complicated UTI\\
-Leukocytosis
- Urinalysis shows greater than 100 WBC, +3 leukocyte Estrace, positive nitrates
- Urine culture, blood cultures
-IV fluids
- Ceftriaxone
# Candidal rash of left groin folds
- Patient started on terbinafine, has 8 days left
- Rash improving
Renal cell carcinoma status post left partial nephrectomy complicated by hematoma/pseudoaneurysm status post embolization
Chronic anemia
- Hemoglobin 9.3
Obstructive sleep apnea
Possible obesity hypoventilation
- Continue CPAP
Essential hypertension
- Continue aspirin
- Continue lisinopril
Hyperlipidemia
- Continue statin
Prediabetes
- Hold metformin
- Insulin sliding scale
GERD
- Continue Protonix
CVA
Full code
DVT prophylaxis�heparin
Regular diet
[2024-12-16] MEDS: TYLENOL 650 MG PO (15:49)
[2024-12-16 18:40] LABS: Glucose - Point of Care 176 mg/dl (70-99)
[2024-12-16] MEDS: HEPARIN 5000 UNITS SC (19:31)
[2024-12-16] MEDS: NOVOLOG FLEXPEN-LOW RESISTANCE 1 UNITS SC (19:31)
[2024-12-16] MEDS: PROTONIX 40 MG PO (20:58)
[2024-12-16] MEDS: NSS 1000 IV (20:59)
[2024-12-16] MEDS: ELAVIL 50 MG PO (20:59)
--- NOTE | 2024-12-16 21:13 | PTCARENOTE ---
Pt arrived from the ED via stretcher. Patient able to safely ambulate to room 338 bed 2 on . Patient oriented to Unit, call dawn within reach, bed at lowest position. Will continue plan of care.
[2024-12-16 21:37] LABS: Glucose - Point of Care 161 mg/dl (70-99)
[2024-12-17 05:49] LABS: Hematocrit 24.7 % (39.0-52.0); Hemoglobin 8.1 g/dL (13.0-18.0); Mean Corp Hgb Conc. 32.8 g/dL (33.0-37.0); Mean Corpuscular Volume 91.5 fL (80.0-94.0); Nucleated Red Blood Cells % 0 % (-); Platelet Count 201 10^3/uL (130-400); Red Cell Dist. Width 14.4 % (11.5-14.5)
[2024-12-17 06:10] LABS: ALT (SGPT) 14 U/L (0-50); AST (SGOT) 17 U/L (17-59); Albumin 3.3 g/dl (3.5-5.0); Alkaline Phosphatase 99 U/L (38-126); Blood Urea Nitrogen 16 mg/dl (9-20); Calcium 8.1 mg/dl (8.4-10.2); Carbon Dioxide 25 mmol/L (22-30); Chloride 110 mmol/L (98-107); Estimated Creatinine Clearance > 125 ml/min; Glucose 150 mg/dl (70-99); Potassium 3.7 mmol/L (3.5-5.1); Sodium 137 mmol/L (135-145); Total Protein 5.8 g/dl (6.3-8.2); eGFR > 60.00
[2024-12-17] MEDS: NSS 1000 IV ×2 (06:18→18:29)
[2024-12-17 07:58] VITALS: BP 119/56
[2024-12-17 08:06] LABS: Glucose - Point of Care 159 mg/dl (70-99)
[2024-12-17 09:08] LABS: Glycohemoglobin (HgbA1c) 6.0 % (4.0-5.6)
--- NOTE | 2024-12-17 09:25 | W.PN.HOSP.TC ---
Today's Communication/Plan
-
see plan
Assessment / Plan
Assessment / Plan
Gen: NAD, AAOx3.
Eyes: EOMI, PERRLA, no scleral icterus.
Neck: supple.
CV: RRR, +S1/S2, no m/r/g.
Resp: CTAB, no rales, wheezes, or rhonchi.
Abd: +BS, soft, NT, ND
Skin: No rashes.
Neuro: CN 2-12 intact, non-focal.
Psych: Normal mood and affect.
Sepsis, POA, due to recurrent UTI:
-follow UCx/BCxs
-IVFs
-cont Ceftriaxone
-leukocytosis improving
-c/s ID
Other problems:
Candidal rash of L groin folds: started on terbinafine, has 8 days left
RCC s/p L partial nephrectomy complicated by hematoma/pseudoaneurysm s/p embolization
Chronic anemia: trend Hb, current drop likely dilutional
EKATERINA, likely OHS: cont CPAP
Essential HTN: cont ACEi
Hyperlipidemia: Cont statin
Prediabetes: Home Metformin on hold, SSI/accuchecks
GERD: cont PPI
h/o CVA: cont ASA/statin
FULL/heparin
Anticipated Discharge: 24 - 48 hours
Subjective/Interval History
-
Date of Service: December 17, 2024
No new complaints.
Objective Data
-
Labs:
Laboratory Results
12/17/24
05:05
WBC 16.2 H
Hgb 8.1 L
Hct 24.7 L
Plt Count 201
Sodium 137
Potassium 3.7
Chloride 110 H
Carbon Dioxide 25
BUN 16
Creatinine 0.7
Glucose 150 H
Calcium 8.1 L
Total Bilirubin 0.6
AST 17
ALT 14
Alkaline Phosphatase 99
Vital Signs:
Vital Signs
Temp Pulse Resp BP Pulse Ox
98.9 F 90 16 119/56 93
12/17/24 07:58 12/17/24 07:58 12/17/24 07:58 12/17/24 07:58 12/17/24 07:58
I&O
12/16/24 12/17/24 12/18/24
06:59 06:59 06:59
Intake Total 480 / 480
Balance 480 / 480
[2024-12-17] MEDS: THERAGRAN 1 TABLET PO (09:40)
[2024-12-17] MEDS: PROTONIX 40 MG PO ×2 (09:40→20:02)
[2024-12-17] MEDS: LOW STRENGTH ASPIRIN 81 MG PO (09:40)
[2024-12-17] MEDS: HEPARIN 5000 UNITS SC ×2 (09:41→20:01)
[2024-12-17] MEDS: ZESTRIL 10 MG PO (09:41)
[2024-12-17] MEDS: NOVOLOG FLEXPEN-LOW RESISTANCE 1 UNITS SC (09:42)
[2024-12-17 11:51] LABS: Glucose - Point of Care 221 mg/dl (70-99)
--- NOTE | 2024-12-17 12:43 | CON.ID ---
Consultation
-
Date/Time Consultation Requested: December 17, 2024 0931
Date/Time Consultation Performed: December 17, 2024 1245
Requesting Provider: Dr. Jaylen Ni
Performing Provider: Dr. Linda Sanchez
Reason for Consultation: UTI
Chief Complaint / Past History
Chief Complaint
Chills
History of Present Illness
69-year-old male with history of diabetes mellitus, renal cell carcinoma status post partial left nephrectomy September 2024 complicated by hematoma requiring coil embolization October 22, 2024, complicated by E. coli urosepsis/bacteremia for which he
completed a course of cefdinir through November 08. He was doing well until few days ago when he started having intermittent chills. He did not take his temperature. No urine symptoms. Chills felt similar to previous urosepsis and therefore he came
to the hospital December 16. In ED temperature 101.3, white count 17.1. Urinalysis positive nitrite, 3+ leukocyte esterase, more than 100 white blood cells he is currently on ceftriaxone. No further chills since being in hospital. He denies flank
pain. No urinary urgency nor dysuria. No other focal symptoms.
Past History
Additional Past Medical History:
HN
HLD
GERD
DM
EKATERINA
Hx CVA
Left renal cell carcinoma s/p Robotic partial left nephrectomy (10/14/2024) complicated by pseudoaneurysm w/p coil embolization 10/22/24
E. coli UTI/bacteremia 10/20/24
Appendectomy
Cholecystectomy
Allergy History:
penicillin G Allergy (Verified 10/19/24 17:15)
Swelling
Penicillins Allergy (Verified 10/19/24 17:15)
Swelling
Medications Reviewed: Yes
Current Antibiotics:
Ceftriaxone d2
Social History
Tobacco: Non-Smoker
Alcohol: None
Drug: None
Personal:
Living: With Family
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
Family History
Family History: Not Pertinent
Review of Systems
Review of Systems
General: Chills and Change in Appetite
HEENT: Negative Sinus Problems or Headache
Cardiovascular: Negative Chest Pain or Dyspnea
Respiratory: Negative Dyspnea or Cough
Gasteroenterology: Negative Nausea, Vomiting or Diarrhea
Genital / Urological: Negative Dysuria or Flank Pain
Endocrine: Weakness
Neurological: Negative Dizziness
All systems: All other systems were reviewed and were negative
Vital Signs
Temp Pulse Resp BP Pulse Ox
98.9 F 90 16 119/56 93
12/17/24 07:58 12/17/24 09:41 12/17/24 07:58 12/17/24 09:41 12/17/24 07:58
Selected Entries
12/16/24
17:02
Temp 101.3 F H
Physical Exam
Physical Exam
Constitutional: No Acute Distress and Comfortable
Eyes: No Conjunctival Hemorrhage and Sclera Anicteric
Cardiovascular: Regular Rate and S1/S2
Pulmonary: Clear
Gastrointestinal: Soft, Non Tender, Non Distended and Normal Bowel Sounds
Genito-Urinary: Negative Franco or CVA Tenderness
Neurological: AO x 3
Lab / Diagnostic Study Results
12/17/24 05:05
12/17/24 05:05
Abs Immat Gran (auto) 0.1 10^3/uL (0-0.05) H 12/17/24 05:05
Absolute Neuts (auto) 13.9 10^3/uL (1.4-6.5) H 12/17/24 05:05
Absolute Lymphs (auto) 1.0 10^3/uL (1.2-3.4) L 12/17/24 05:05
Absolute Monos (auto) 1.2 10^3/uL (0.1-0.6) H 12/17/24 05:05
Absolute Basos (auto) 0.0 10^3/uL (0-0.2) 12/17/24 05:05
Immature Gran % 0.5 % (0-0.5) 12/17/24 05:05
Neutrophils % 85.7 % (42.2-75.2) H 12/17/24 05:05
Lymphocytes % 6.2 % (20.5-51.1) L 12/17/24 05:05
Monocytes % 7.5 % (1.7-9.3) 12/17/24 05:05
Eosinophils % 0.0 % (0-6) 12/17/24 05:05
Basophils % 0.1 % (0-2) 12/17/24 05:05
Lactic Acid 1.9 mmol/L (0.7-2.0) 12/16/24 12:01
Lactic Acid Cancelled 12/16/24 12:01
Ur Squamous Epith Cells 0-2 /LPF (Few) 12/16/24 12:01
Microbiology Results
Micro:
12/16/24 12:01 Blood Culture - Preliminary
Blood/Venous No Growth in 24 hours- Final report to follow
12/16/24 12:01 Blood Culture - Preliminary
Blood/Venous No Growth in 24 hours- Final report to follow
12/16/24 12:01 Urine Culture - Preliminary
Urine Escherichia coli
Assessment / Plan
# E. coli UTI
# Fever
# Leukocytosis
# Recent hx E. coli UTI/bacteremia 10/20/24
# RCC s/pp partial left nephrectomy 10/14/24
- Blood cx's neg to date.
- Continue ceftriaxone (d2)
- Await final urine cx data.
- Follow temps/wbc.
# Conditions SUPERINTENDENT TERMINAL
HN
HLD
GERD
DM
EKATERINA
Hx CVA
Left renal cell carcinoma s/p Robotic partial left nephrectomy (10/14/2024)
complicated by pseudoaneurysm w/p coil embolization 10/22/24
E. coli UTI/bacteremia 10/20/24
Appendectomy
Cholecystectomy
[2024-12-17] MEDS: NOVOLOG FLEXPEN-LOW RESISTANCE 2 UNITS SC (13:36)
[2024-12-17] MEDS: ROCEPHIN 2000 MG IV (13:36)
[2024-12-17] MEDS: STERILE WATER FOR INJECTION 20 ML IV (13:36)
[2024-12-17] MEDS: STERILE WATER FOR INJECTION IV (14:14)
[2024-12-17 15:15] VITALS: BP 121/57
--- NOTE | 2024-12-17 16:16 | CM ---
Alert awake oriented patient who lives with his Xiomara in a 2 story home with 2 step to enter and bed and bathroom on first floor. He is independent in driving and in all activities of daily living.He was offered VN he declined need.His
will drive him home.
No VN hx / No SNF history
Pharmacy [facility]
PCP DR Matos
PLAN Home Declined VN
[2024-12-17 16:59] LABS: Glucose - Point of Care 147 mg/dl (70-99)
[2024-12-17] MEDS: LIPITOR 40 MG PO (18:07)
[2024-12-17] MEDS: PEPCID 20 MG PO (18:07)
[2024-12-17] MEDS: NOVOLOG FLEXPEN-LOW RESISTANCE SC (18:08)
[2024-12-17 21:07] LABS: Glucose - Point of Care 182 mg/dl (70-99)
[2024-12-17] MEDS: NON-FORMULARY ITEM 250 MG PO (21:53)
[2024-12-17] MEDS: ELAVIL 50 MG PO (21:59)
[2024-12-17 23:16] VITALS: BP 118/48
[2024-12-18] MEDS: NSS 1000 IV (05:50)
[2024-12-18 07:00] VITALS: BP 127/67
[2024-12-18] MEDS: LOW STRENGTH ASPIRIN 81 MG PO (08:03)
[2024-12-18] MEDS: THERAGRAN 1 TABLET PO (08:03)
[2024-12-18] MEDS: PROTONIX 40 MG PO ×2 (08:03→20:09)
[2024-12-18] MEDS: HEPARIN 5000 UNITS SC ×2 (08:04→20:09)
[2024-12-18] MEDS: NON-FORMULARY ITEM 250 MG PO (08:07)
[2024-12-18 08:13] LABS: Glucose - Point of Care 143 mg/dl (70-99)
[2024-12-18] MEDS: ZESTRIL 10 MG PO (08:15)
[2024-12-18] MEDS: NOVOLOG FLEXPEN-LOW RESISTANCE SC ×2 (08:15→16:39)
--- NOTE | 2024-12-18 09:05 | W.PN.HOSP.TC ---
Today's Communication/Plan
-
see plan
Assessment / Plan
Assessment / Plan
Gen: NAD, AAOx3.
Eyes: EOMI, PERRLA, no scleral icterus.
Neck: supple.
CV: remains RRR, +S1/S2, no m/r/g.
Resp: remains CTAB, no rales, wheezes, or rhonchi.
Abd: remains +BS, soft, NT, ND
Skin: No rashes.
Neuro: CN 2-12 intact, non-focal.
Psych: Normal mood and affect.
12/16/24 12:01 Urine Urine Culture - Preliminary
Escherichia coli
12/16/24 12:01 Blood/Venous Blood Culture - Preliminary
No Growth in 24 hours- Final report to follow
12/16/24 12:01 Blood/Venous Blood Culture - Preliminary
No Growth in 24 hours- Final report to follo
Sepsis, POA, due to recurrent UTI:
-follow UCx sensitivities
-follow BCxs (NGTD)
-IVFs
-cont Ceftriaxone as per ID
-leukocytosis improving
Other problems:
Candidal rash of L groin folds: started on terbinafine, has 8 days left
RCC s/p L partial nephrectomy complicated by hematoma/pseudoaneurysm s/p embolization
Chronic anemia: trend Hb, prior drop likely dilutional, now increased to 8.9
EKATERINA, likely OHS: cont CPAP
Essential HTN: cont ACEi
Hyperlipidemia: Cont statin
Prediabetes: Home Metformin on hold, SSI/accuchecks
GERD: cont PPI
h/o CVA: cont ASA/statin
Obesity due to excess calories
FULL/heparin
Anticipated Discharge: 24 - 48 hours
Subjective/Interval History
-
Date of Service: December 18, 2024
No new complaints.
Objective Data
-
Vital Signs:
Vital Signs
Temp Pulse Resp BP Pulse Ox
99.1 F 85 17 127/67 95
12/18/24 07:00 12/18/24 07:00 12/18/24 07:00 12/18/24 07:00 12/18/24 07:00
I&O
12/17/24 12/18/24 12/19/24
06:59 06:59 06:59
Intake Total 480 / 480 1320 / 1320
Balance 480 / 480 1320 / 1320
[2024-12-18 09:27] LABS: Hematocrit 27.6 % (39.0-52.0); Hemoglobin 8.9 g/dL (13.0-18.0); Mean Corp Hgb Conc. 32.2 g/dL (33.0-37.0); Mean Corpuscular Volume 92.9 fL (80.0-94.0); Platelet Count 211 10^3/uL (130-400); Red Cell Dist. Width 14.3 % (11.5-14.5)
[2024-12-18 12:06] LABS: Blood Urea Nitrogen 11 mg/dl (9-20); Calcium 8.3 mg/dl (8.4-10.2); Carbon Dioxide 22 mmol/L (22-30); Chloride 109 mmol/L (98-107); Estimated Creatinine Clearance > 125 ml/min; Glucose 144 mg/dl (70-99); Potassium 3.8 mmol/L (3.5-5.1); Sodium 140 mmol/L (135-145); eGFR > 60.00
[2024-12-18 12:16] LABS: Glucose - Point of Care 181 mg/dl (70-99)
--- NOTE | 2024-12-18 12:50 | CM ---
Patient chart reviewed
cont on IV antibiotics
PLAN: Home, no needs, declined VN, when stable
[2024-12-18] MEDS: NOVOLOG FLEXPEN-LOW RESISTANCE 1 UNITS SC (13:10)
[2024-12-18] MEDS: STERILE WATER FOR INJECTION 20 ML IV (13:11)
[2024-12-18] MEDS: ROCEPHIN 2000 MG IV (13:12)
[2024-12-18 15:00] VITALS: BP 128/80
[2024-12-18 16:37] LABS: Glucose - Point of Care 149 mg/dl (70-99)
[2024-12-18] MEDS: LIPITOR 40 MG PO (17:20)
[2024-12-18] MEDS: PEPCID 20 MG PO (17:20)
[2024-12-18] MEDS: ELAVIL 50 MG PO (21:02)
[2024-12-18 21:50] LABS: Glucose - Point of Care 181 mg/dl (70-99)
[2024-12-18 23:00] VITALS: BP 125/54
[2024-12-19 05:54] LABS: Hematocrit 26.4 % (39.0-52.0); Hemoglobin 8.7 g/dL (13.0-18.0); Mean Corp Hgb Conc. 33.0 g/dL (33.0-37.0); Mean Corpuscular Volume 91.7 fL (80.0-94.0); Platelet Count 242 10^3/uL (130-400); Red Cell Dist. Width 14.0 % (11.5-14.5)
[2024-12-19 06:20] LABS: Blood Urea Nitrogen 12 mg/dl (9-20); Calcium 8.3 mg/dl (8.4-10.2); Carbon Dioxide 25 mmol/L (22-30); Chloride 110 mmol/L (98-107); Estimated Creatinine Clearance > 125 ml/min; Glucose 145 mg/dl (70-99); Potassium 3.9 mmol/L (3.5-5.1); Sodium 141 mmol/L (135-145); eGFR > 60.00
[2024-12-19 07:00] VITALS: BP 131/62
[2024-12-19] MEDS: PROTONIX 40 MG PO (07:49)
[2024-12-19] MEDS: ZESTRIL 10 MG PO (07:49)
[2024-12-19] MEDS: THERAGRAN 1 TABLET PO (07:50)
[2024-12-19] MEDS: LOW STRENGTH ASPIRIN 81 MG PO (07:50)
[2024-12-19] MEDS: HEPARIN 5000 UNITS SC (07:51)
[2024-12-19] MEDS: NON-FORMULARY ITEM 250 MG PO (07:53)
[2024-12-19 08:03] LABS: Glucose - Point of Care 152 mg/dl (70-99)
--- NOTE | 2024-12-19 08:15 | W.PN.HOSP.TC ---
Today's Communication/Plan
-
d/c
Assessment / Plan
Assessment / Plan
Gen: NAD, AAOx3.
Eyes: EOMI, PERRLA, no scleral icterus.
Neck: supple.
CV: continues to remain RRR, +S1/S2, no m/r/g.
Resp: continues to remain CTAB, no rales, wheezes, or rhonchi.
Abd: continues to remain +BS, soft, NT, ND
Skin: No rashes.
Neuro: CN 2-12 intact, non-focal.
Psych: Normal mood and affect.
12/16/24 12:01 Blood/Venous Blood Culture - Preliminary
No Growth in 48 hours- Final report to follow
12/16/24 12:01 Blood/Venous Blood Culture - Preliminary
No Growth in 48 hours- Final report to follow
12/16/24 12:01 Urine Urine Culture - Final
Escherichia coli
Sepsis, POA, due to recurrent UTI:
-UCx with E coli resistant to ancef and Ampicillin (including Augmentin/Unsayn)
-BCxs (NGTD)
-s/p IVFs
-leukocytosis resolved
-currently on Ceftriaxone, d/c on Cefdinir for 7 more days as per ID
Other problems:
Candidal rash of L groin folds: started on terbinafine, had 8 days left at the time of admission
RCC s/p L partial nephrectomy complicated by hematoma/pseudoaneurysm s/p embolization
Chronic anemia: trend Hb, prior drop likely dilutional, now stable at 8.7
EKATERINA, likely OHS: cont CPAP
Essential HTN: cont ACEi
Hyperlipidemia: Cont statin
Prediabetes: Home Metformin on hold, SSI/accuchecks
GERD: cont PPI
h/o CVA: cont ASA/statin
Obesity due to excess calories
FULL/heparin
Total time spent on d/c = 31 min. This included today's physical exam, progress note, review of laboratory and diagnostic data, preparation of discharge documents and prescriptions, and discussions about the pt's hospital course and discharge plan
with the patient and other medical pathology teacher involved in the patient's care.
Anticipated Discharge: Today
Subjective/Interval History
-
Date of Service: December 19, 2024
No new complaints.
Objective Data
-
Labs:
Laboratory Results
12/19/24
05:12
WBC 7.6
Hgb 8.7 L
Hct 26.4 L
Plt Count 242
Sodium 141
Potassium 3.9
Chloride 110 H
Carbon Dioxide 25
BUN 12
Creatinine 0.7
Glucose 145 H
Calcium 8.3 L
Vital Signs:
Vital Signs
Temp Pulse Resp BP Pulse Ox
98.6 F 87 17 131/62 98
12/19/24 07:00 12/19/24 07:49 12/19/24 07:00 12/19/24 07:49 12/19/24 07:38
I&O
12/18/24 12/19/24 12/20/24
06:59 06:59 06:59
Intake Total 1320 / 1320 720 / 720 180 / 180
Balance 1320 / 1320 720 / 720 180 / 180
[2024-12-19] MEDS: NOVOLOG FLEXPEN-LOW RESISTANCE 1 UNITS SC (09:03)
--- NOTE | 2024-12-19 09:49 | CM ---
Patient seen at bedside with
Discharge today
IMM explained & signed. In chart
offered VN-declined
PLAN: home, no needs, declines VN
to transport
--- NOTE | 2024-12-19 13:05 | W.DCSUMMARY ---
Discharge Summary
Discharge Data
Date of Admission: 12/16/24
Date of Discharge: 12/19/24
-
Pending Results: No
Hospital Course
Primary diagnoses:
Sepsis due to acute urinary tract infection
Secondary diagnoses:
Candidal rash of L groin folds
Renal cell carcinoma s/p L partial nephrectomy complicated by hematoma/pseudoaneurysm s/p embolization
Chronic anemia
Obstructive sleep apnea with likely obesity hypoventilation syndrome
Essential hypertension
Hyperlipidemia
Prediabetes
Gastroesophageal reflux disease
h/o cerebrovascular accident
Obesity due to excess calories
Consultants:
Infectious disease
Imaging:
None
Hospital course: 61-year-old male who presented with chief complaint of cloudy urine as outlined in the H&P done on admission. The patient had a leukocytosis and fever and his urinalysis was consistent with acute urinary tract infection. Patient
was placed on IV Rocephin. His leukocytosis resolved. Patient was on IV fluids. Blood cultures were no growth today. UCx with E coli resistant to ancef and Ampicillin (including Augmentin/Unsayn). He was discharged on Cefdinir for 7 further
days.
Discharge Plan
-
Patient Disposition: Home (Routine Discharge)
Discharge Diagnosis/Procedures: Sepsis due to acute urinary tract infection
Condition: Good
Diet: Diabetic, Carb Controlled
Activity: As tolerated
Driving Restrictions: As prior to admission
Bathing Restrictions: None
Referrals:
Tanner Matos DO [Family Provider, Family Practice] - in less than 1 week
Mayo Aponte MD [Active, Hematology / Oncology] - in two to four weeks
Referral Note: anemia
Prescriptions:
New
cefdinir 300 mg capsule
300 mg PO BID Qty: 14 0RF
Continued
multivitamin with folic acid [Tab-A-Elizabeth] 1 TABLET tablet
1 tab PO DAILY
famotidine 20 mg Tablet
20 mg PO QPM
pantoprazole 40 mg Tablet,Delayed Release (Dr/Ec)
40 mg PO BID
Ozempic 0.25 mg or 0.5 mg (2 mg/3 mL) Pen Injector
0.25 mg SC MO
atorvastatin [Lipitor] 40 mg Tablet
40 mg PO QPM
acetaminophen [Tylenol Extra Strength] 500 mg Tablet
1,000 mg PO Q6HPRN PRN (Reason: MILD PAIN)
metformin 500 mg Tablet Extended Release 24 Hr
500 mg PO DAILY
amitriptyline 50 mg Tablet
50 mg PO HS
terbinafine HCl 250 mg Tablet
250 mg PO DAILY
Rx Instructions:
for 10 days starting 12/14/24
lisinopril 10 MG tablet
10 mg PO DAILY
aspirin 81 MG tablet,chewable
81 mg PO DAILY
metformin 500 MG tablet extended release 24 hr
1,000 mg PO QPM
Discharge Orders:
Discharge Patient (As Directed); Ordered 12/19/24
Ordered By: Jaylen Ni
Discharge Date and Time
Discharge Date/Time: 12/19/24 10:01
Print Language: TRISTANIAN
== END 2024-12-19 10:01 | disposition home or self-care (01) | DRG 872 ==
LOC: 3 WEST ACU 14:48
PROVIDERS: ADMITTING PHYSICIAN Hospitalist; ATTENDING PHYSICIAN Internal Medicine; EMERGENCY PHYSICIAN Emergency Medicine; FAMILY PHYSICIAN Family Medicine; OTHER PHYSICIAN Internal Medicine Infectious Disease
DX: A41.9 Sepsis, unspecified organism (principal); N39.0 Urinary tract infection, site not specified; E66.2 Morbid (severe) obesity with alveolar hypoventilation; B37.2 Candidiasis of skin and nail; Z85.528 Personal history of other malignant neoplasm of kidney; D64.9 Anemia, unspecified; I10 Essential (primary) hypertension; E78.00 Pure hypercholesterolemia, unspecified; K21.9 Gastro-esophageal reflux disease without esophagitis; Z86.73 Personal history of transient ischemic attack (TIA), and cerebral infarction without residual deficits; E11.9 Type 2 diabetes mellitus without complications; Z79.84 Long term (current) use of oral hypoglycemic drugs; Z87.440 Personal history of urinary (tract) infections; Z90.5 Acquired absence of kidney; Z68.38 Body mass index [BMI] 38.0-38.9, adult
CPT/HCPCS: 80048; 80053; 81003; 81015; 82962; 83036; 83605; 85025; 85027; 87040; 87077; 87086; 87186; 96361; 96374; 99284

== ENCOUNTER → 2025-01-21 14:24 | Outpatient (REF) | payer MEDICARE, BC, SELFPAY | LOC: RAD 14:24 | PROVIDERS: ATTENDING PHYSICIAN Urology; FAMILY PHYSICIAN Family Medicine | DX: N28.89 Other specified disorders of kidney and ureter (principal); C64.2 Malignant neoplasm of left kidney, except renal pelvis | CPT/HCPCS: 74178; Q9967 ==

== ENCOUNTER 2025-04-17 15:32 | Emergency (ER) | payer MEDICARE, BC, SELFPAY ==
[2025-04-17 15:34] VITALS: BP 162/71
--- NOTE | 2025-04-17 16:20 | ED.GENMED ---
History of Present Illness
General
Chief Complaint: Head Injury
Time Seen by Provider: 04/17/25 16:01
History of Present Illness
History of Present Illness:
69-year-old male presents the emergency department for evaluation after a minor fall with resultant minor head injury. States he was carrying things up his stairs when he lost his balance and fell forward. He struck his right elbow and right knee
on the ground before grazing his head against a concrete step. Denies LOC. No reported headaches, nausea, or vomiting at this time. Denies any significant neck pain or extremity paresthesias. Denies pain to the right elbow or right knee, able to
ambulate
Past History
Past History
ED Past Medical History: HTN, Hypercholesterolemia, NIDDM and Other (EKATERINA)
ED Past Surgical History: Appendectomy, Cholecystectomy and Urological
Social History
Tobacco: Non-smoker
Alcohol: Occasional
Drug: None
Personal:
Living: with family
Employment: Employed
Review of Systems
Review of Systems
Allergies reviewed?: Yes
All Other Systems: ROS reviewed and negative except as documented in HPI and ROS
Phy Exam
Physical Exam
Physical Exam:
GEN: Well appearing, NAD, WDWN
HEENT: Minor abrasion to the right temporal scalp, no cephalohematoma, no midline cervical spine tenderness, oral mucosa moist, no scleral icterus
Cardiac: Regular rate and rhythm, no murmurs
Lung: No respiratory distress, no tachypnea
MSK: No gross deformity or injuries. Minor abrasion to the right elbow, no diffuse swelling or ecchymosis, right elbow range of motion is normal. No apparent external trauma to the right knee, range of motion and strength normal in all fierro
Skin: Good color, no pallor or jaundice, no rashes
Neuro: AO x3, cranial nerves II through XII grossly intact, bilateral upper and lower extremity strength is 5 out of 5 in all fierro and symmetric
Psych: Calm, cooperative
Course
Vital Signs
Initial and Last Documented VS:
Initial Vital Signs
Temp Pulse Resp BP Pulse Ox
98 F 89 16 162/71 98
04/17/25 15:34 04/17/25 15:34 04/17/25 15:34 04/17/25 15:34 04/17/25 15:34
Last Documented Vital Signs
Temp Pulse Resp BP Pulse Ox
98 F 89 16 162/71 98
04/17/25 15:34 04/17/25 15:34 04/17/25 15:34 04/17/25 15:34 04/17/25 16:21
MDM/Problems Addressed
MDM/Problems Addressed:
Patient's mechanism of trauma was quite minor and at this time he has no headache no signs of cephalohematoma. I did discuss the possible option of CT scan although low clinical suspicion for intracranial hemorrhage at this time. Through shared
decision making we opted to avoid CT imaging at this time which I feel to be reasonable and safe at this juncture given the patient's relative lack of symptoms. Discussed supportive care and return parameters
*Pulse Oximetry
SaO2: 98
Oxygen Mode of Delivery: Room air
Patient hypoxic: no
*Critical Care Note
Total Time (30-74mins, 75-104mins- exclusive of procedures): Not Applicable
ED Attending Note
-
Portions of this chart may have been created with voice recognition software.� Occasional wrong word or��sound alike� substitutions may have occurred due to the inherent limitations of voice recognition software.
Discharge Plan
Departure
Patient Disposition: Home (Routine Discharge)
Date of Disposition: 04/17/25
Time of Disposition: 16:20
Patient with high blood pressure during this ER visit?: No
Discharge Problem:
Closed head injury, Abrasion of elbow, right
Instructions: Head Injury in Adults (DC)
Prescriptions:
No Action
multivitamin with folic acid [Tab-A-Elizabeth] 1 TABLET tablet
1 tab PO DAILY
famotidine 20 mg Tablet
20 mg PO QPM
pantoprazole 40 mg Tablet,Delayed Release (Dr/Ec)
40 mg PO BID
Ozempic 0.25 mg or 0.5 mg (2 mg/3 mL) Pen Injector
0.25 mg SC MO
atorvastatin [Lipitor] 40 mg Tablet
40 mg PO QPM
acetaminophen [Tylenol Extra Strength] 500 mg Tablet
1,000 mg PO Q6HPRN PRN (Reason: MILD PAIN)
metformin 500 mg Tablet Extended Release 24 Hr
500 mg PO DAILY
amitriptyline 50 mg Tablet
50 mg PO HS
terbinafine HCl 250 mg Tablet
250 mg PO DAILY
Rx Instructions:
for 10 days starting 12/14/24
lisinopril 10 MG tablet
10 mg PO DAILY
aspirin 81 MG tablet,chewable
81 mg PO DAILY
metformin 500 MG tablet extended release 24 hr
1,000 mg PO QPM
cefdinir 300 mg capsule
300 mg PO BID Qty: 14 0RF
Referrals:
NONE,* [Family Provider, Internal Medicine]
Activity Restrictions/Additional Instructions:
Return to the ER if you develop severe headache, vomiting or mental status changes
Interventions
Interventions:
*Risk Screen - Suicide Last Done: 04/17/25 15:35
*General Assessment Last Done: 04/17/25 16:15
*Neglect/Abuse Screening Last Done: 04/17/25 15:35
*ED- Fall Risk Assessment Last Done: 04/17/25 16:15
*ED COVID-19 Vaccine History Last Done: 04/17/25 16:15
*ED Influenza Vaccine History Last Done: 04/17/25 16:15
*Nursing Disposition Last Done: 04/17/25 16:30
ED- Neurological Assessment Last Done: 04/17/25 16:15
ED-Skin Assessment Last Done: 04/17/25 16:15
Discharge Date and Time
Discharge Date/Time: 04/17/25 16:31
Print Language: CUBAN
== END 2025-04-17 16:31 | disposition home or self-care (01) ==
LOC: EMR 15:32
PROVIDERS: EMERGENCY PHYSICIAN Emergency Medicine
DX: S09.90XA Unspecified injury of head, initial encounter (principal); S50.311A Abrasion of right elbow, initial encounter; W10.9XXA Fall (on) (from) unspecified stairs and steps, initial encounter; E11.9 Type 2 diabetes mellitus without complications; I10 Essential (primary) hypertension; E78.00 Pure hypercholesterolemia, unspecified; G47.33 Obstructive sleep apnea (adult) (pediatric); Z79.84 Long term (current) use of oral hypoglycemic drugs; Z79.82 Long term (current) use of aspirin
CPT/HCPCS: 99282

== ENCOUNTER → 2025-05-21 07:16 | Outpatient (REF) | payer MEDICARE, BC, SELFPAY | LOC: MRI 3T 07:16 | PROVIDERS: ATTENDING PHYSICIAN Pain Medicine Interventional Pain Medicine; FAMILY PHYSICIAN Family Medicine | DX: M54.16 Radiculopathy, lumbar region (principal) | CPT/HCPCS: 72148 ==